=== PATIENT | male | born 1960 | race Two or more races ===

== ENCOUNTER 2020-09-21 10:08 | Inpatient (IN) | payer MEDICAID, OTHER ==
[~2020-09-21] VITALS: Ht 172.7 cm; Wt 94.0 kg
[2020-09-21] MEDS ORDERED: DexAMETHasone SOD PHOS 10MG/1ML VIAL INJ IV ONE (10:45)
[2020-09-21] MEDS ORDERED: ASCORBIC ACID 500 MG TAB PO ONE (10:45)
[2020-09-21] MEDS ORDERED: ZINC SULFATE 220mg CAP or TAB PO ONE (10:45)
[2020-09-21] MEDS ORDERED: cefTRIAXone 1GM/50ML D5W 50 ML IV ONE (10:45)
[2020-09-21 11:19] LABS: Basophils # (auto) 0 10 ^3/uL (0-0.2); Basophils % (auto) 0.2 % (0.0-2.0); Eosinophils # (auto) 0 10 ^3/uL (0-0.8); Hematocrit 36.2 % (41.0-53.0); Hemoglobin 12.6 g/dL (13.5-17.5); Lymphocytes # (auto) 0.3 10 ^3/uL (0.4-5.4); Lymphocytes % (auto) 2.7 % (10.0-50.0); Mean Corpuscular Hemoglobin 28.4 pg (28.0-32.0); Mean Corpuscular Hgb Conc. 34.8 g/dL (32.0-36.0); Mean Corpuscular Volume 81.5 fL (80.0-100.0); Monocytes # (auto) 0.5 10 ^3/uL (0-1.3); Monocytes % (auto) 4.6 % (0.0-12.0); Neutrophils # (auto) 9.3 10 ^3/uL (1.6-8.6); Neutrophils % (auto) 92.5 % (37.0-80.0); Platelet Count (auto) 337 10^3/uL (140-450); Red Blood Cells 4.44 10^6/uL (4.5-5.90); White Blood Cell 10.1 10^3/uL (4.4-10.8)
[2020-09-21 11:32] LABS: Albumin 2.4 g/dL (3.4-5.0); Anion Gap 9 (5-15); Blood Urea Nitrogen 44 mg/dL (7-18); Calcium 8.5 mg/dL (8.5-10.1); Carbon Dioxide 25 mmol/L (21-32); Chloride 100 mmol/L (98-107); Glucose 217 mg/dL (74-106); Sodium 134 mmol/L (136-145)
[2020-09-21 11:41] LABS: Alanine Aminotransferase 60 U/L (16-61); Alkaline Phosphatase 60 U/L (45-117); Aspartate Aminotransferase 43 U/L (15-37); BUN/Creatinine Ratio 36.4; Bilirubin, Total 0.4 mg/dL (0.2-1.0); GFR African American 79 mL/min; GFR Non-African American 65 mL/min; Lactate Dehydrogenase 523 U/L (87-241); Total Protein 6.9 g/dL (6.4-8.2)
[2020-09-21 11:54] LABS: INR 1.1 (0.9-1.15); Partial Thromboplastin Time 30.7 sec (23.0-31.2)
[2020-09-21 11:57] LABS: CRP High Sensitivity > 19.0 mg/dL (< 0.3)
[2020-09-21] MEDS ORDERED: POTASSIUM CHLORIDE 40 MEQ, LIDOCAINE 1% (LOCAL ANESTH.) 4 ML in SODIUM CHL 0.9% 250 ML IV ONE (19:00)
[2020-09-21] MEDS ORDERED: NITROGLYCERIN 0.4 MG SL TAB SL PRN ×2 (19:00→23:45)
[2020-09-21] MEDS ORDERED: MORPHINE SULF INJ 2 MG/ML SYRINGE 1ML IV PRN ×3 (19:00→23:45)
[2020-09-21 19:54] LABS: Urine Bacteria NONE SEEN /hpf (None Seen); Urine Blood Negative /uL (Negative); Urine Specific Gravity 1.017 (1.001-1.035); Urine WBC 1 /hpf (0 - 3)
[2020-09-21] MEDS ORDERED: ENOXAPARIN SOD 100 MG/1 ML SYRINGE SC ONE (23:45)
[2020-09-21] MEDS ORDERED: ALUM & MAG HYDROX-SIMETH LIQ(MAALOX) 30 ML PO PRN (23:45)
[2020-09-21] MEDS ORDERED: DOCUSATE SOD 100 MG CAP PO PRN (23:45)
[2020-09-21] MEDS ORDERED: DEXTROSE (50%) 50ML SYRG IV PRN (23:45)
[2020-09-21] MEDS ORDERED: ONDANSETRON HCL 4 MG/2 ML VIAL IV PRN (23:45)
[2020-09-21] MEDS ORDERED: ACETAMINOPHEN 500 MG TAB PO PRN (23:45)
[2020-09-21] MEDS: SODIUM CHLORIDE 0.9% 1,000 ML IV SCH (23:45)
[2020-09-21] MEDS ORDERED: REMDESIVIR PER PHARMACY 0 ML IV SCH (23:45)
[2020-09-21] MEDS ORDERED: POTASSIUM CHL 20 Meq TABLET PO ONE (23:45)
[2020-09-22 00:15] VITALS: BP 135/60
[2020-09-22 02:19] LABS: Alcohol, Urine < 3.0 mg/dL (0-10); Amphetamine Screen, Urine NEGATIVE (NEGATIVE); Barbiturate Scree,Urine NEGATIVE (NEGATIVE); Benzodiazephine Screen, Urine NEGATIVE (NEGATIVE); Cannabinoid Screen, Urine NEGATIVE (NEGATIVE); Cocaine Screen, Urine NEGATIVE (NEGATIVE); Opiate Scree,Urine NEGATIVE (NEGATIVE); Phencyclidine Screen, Urine NEGATIVE (NEGATIVE)
[2020-09-22 03:48] LABS: Basophils # (auto) 0 10 ^3/uL (0-0.2); Basophils % (auto) 0.2 % (0.0-2.0); Eosinophils # (auto) 0 10 ^3/uL (0-0.8); Hematocrit 37.7 % (41.0-53.0); Hemoglobin 13.3 g/dL (13.5-17.5); Lymphocytes # (auto) 0.3 10 ^3/uL (0.4-5.4); Lymphocytes % (auto) 3.4 % (10.0-50.0); Mean Corpuscular Hemoglobin 28.8 pg (28.0-32.0); Mean Corpuscular Hgb Conc. 35.1 g/dL (32.0-36.0); Monocytes # (auto) 0.6 10 ^3/uL (0-1.3); Monocytes % (auto) 7.5 % (0.0-12.0); Neutrophils # (auto) 7.3 10 ^3/uL (1.6-8.6); Neutrophils % (auto) 88.9 % (37.0-80.0); Nucleated Red Blood Cells % 0.3 %; Platelet Count (auto) 383 10^3/uL (140-450); White Blood Cell 8.2 10^3/uL (4.4-10.8)
[2020-09-22 04:13] LABS: Albumin 2.5 g/dL (3.4-5.0); Anion Gap 4 (5-15); Blood Urea Nitrogen 35 mg/dL (7-18); Calcium 8.6 mg/dL (8.5-10.1); Carbon Dioxide 30 mmol/L (21-32); Chloride 102 mmol/L (98-107); Cholesterol 133 mg/dL (< 200); Glucose 286 mg/dL (74-106); Magnesium 2.7 mg/dL (1.6-2.6); Potassium 3.8 mmol/L (3.5-5.1); Sodium 136 mmol/L (136-145)
[2020-09-22 04:17] LABS: HDL Cholesterol 26 mg/dL (40-59); LDL Cholesterol 80 mg/dL (< 100); Triglycerides 152 mg/dL (< 150)
[2020-09-22 04:21] LABS: Alanine Aminotransferase 58 U/L (16-61); Alkaline Phosphatase 61 U/L (45-117); Aspartate Aminotransferase 42 U/L (15-37); Bilirubin, Total 0.3 mg/dL (0.2-1.0); GFR African American 76 mL/min; GFR Non-African American 63 mL/min; Lactate Dehydrogenase 584 U/L (87-241); Total Protein 7.2 g/dL (6.4-8.2)
[2020-09-22 04:24] LABS: CRP High Sensitivity > 19 mg/dL (< 0.3)
[2020-09-22 05:03] LABS: INR 1.15 (0.9-1.15); Partial Thromboplastin Time 32.3 sec (23.0-31.2)
[2020-09-22] MEDS ORDERED: FUROSEMIDE 20 MG/2 ML VIAL IV SCH (06:00)
[2020-09-22] MEDS: ACCU-CHEK COMFORT CURVE STRIP VI SCH ×4 (06:40→22:00)
[2020-09-22] MEDS: InsuLIN REG 1unit/0.01ml Soln (100units/ml) SC SCH ×4 (06:44→22:47)
[2020-09-22 07:51] LABS: Basophils # (auto) 0 10 ^3/uL (0-0.2); Basophils % (auto) 0.1 % (0.0-2.0); Eosinophils # (auto) 0 10 ^3/uL (0-0.8); Hematocrit 35.7 % (41.0-53.0); Hemoglobin 12.4 g/dL (13.5-17.5); Lymphocytes # (auto) 0.4 10 ^3/uL (0.4-5.4); Lymphocytes % (auto) 4.6 % (10.0-50.0); Mean Corpuscular Hemoglobin 28.4 pg (28.0-32.0); Mean Corpuscular Hgb Conc. 34.8 g/dL (32.0-36.0); Mean Corpuscular Volume 81.6 fL (80.0-100.0); Monocytes # (auto) 0.5 10 ^3/uL (0-1.3); Monocytes % (auto) 6.4 % (0.0-12.0); Neutrophils % (auto) 88.9 % (37.0-80.0); Platelet Count (auto) 351 10^3/uL (140-450); Red Blood Cells 4.38 10^6/uL (4.5-5.90); Red Cell Distribution Width 13.1 % (11.8-14.3); White Blood Cell 7.8 10^3/uL (4.4-10.8)
[2020-09-22 08:00] VITALS: BP 114/67
[2020-09-22 08:06] LABS: Potassium 3.6 mmol/L (3.5-5.1)
[2020-09-22 08:18] LABS: Albumin 2.4 g/dL (3.4-5.0); BUN/Creatinine Ratio 28.4; Bilirubin, Total 0.4 mg/dL (0.2-1.0); Calcium 8.5 mg/dL (8.5-10.1); Total Protein 7.2 g/dL (6.4-8.2)
[2020-09-22] MEDS: DexAMETHasone SOD PHOS 10MG/1ML VIAL INJ IV SCH (09:49)
[2020-09-22] MEDS: FAMOTIDINE (10MG/ML) 2ML VL IV SCH ×2 (09:49→22:45)
[2020-09-22] MEDS: ZINC SULFATE 220mg CAP or TAB PO SCH (09:50)
[2020-09-22] MEDS: POTASSIUM CHL 10 Meq TABLET PO SCH (09:50)
[2020-09-22] MEDS: ASPirin 81 mg TAB PO SCH (09:50)
[2020-09-22] MEDS: DOXYCYCLINE 100MG/250ML 250 ML IV SCH ×2 (09:50→22:45)
[2020-09-22] MEDS: ASCORBIC ACID 1,000 MG TAB PO SCH (09:51)
[2020-09-22] MEDS: ENOXAPARIN SOD 100 MG/1 ML SYRINGE SC SCH ×2 (09:51→22:46)
[2020-09-22] MEDS: CHOLECALCIFEROL (VITD3) 2,000 UNIT CAP/TAB PO SCH (09:51)
[2020-09-22] MEDS: BUDESONIDE (INHALATION) 180 MCG IH IN SCH ×2 (10:00→21:31)
[2020-09-22] MEDS ORDERED: REMDESIVIR 200 MG in NS 210ml LOADING DOSE ADULT IV ONE (15:00)
[2020-09-22 16:00] VITALS: BP_SYST 113; BP_SYST 122; BP_DIAS 64; BP_DIAS 70
[2020-09-22] MEDS: SODIUM CHLORIDE 0.9% 1,000 ML IV SCH (16:25)
[2020-09-22] MEDS: FUROSEMIDE 40 MG/4 ML VIAL IV SCH (18:44)
[2020-09-22] MEDS: ATORVASTATIN 20 MG TAB PO SCH (22:45)
[2020-09-23] VITALS: BP 102/56
[2020-09-23] MEDS: FUROSEMIDE 40 MG/4 ML VIAL IV SCH ×2 (06:29→17:23)
[2020-09-23] MEDS: InsuLIN REG 1unit/0.01ml Soln (100units/ml) SC SCH ×4 (06:34→23:08)
[2020-09-23] MEDS: ACCU-CHEK COMFORT CURVE STRIP VI SCH ×4 (06:41→22:00)
[2020-09-23] MEDS: BUDESONIDE (INHALATION) 180 MCG IH IN SCH ×2 (06:55→20:11)
[2020-09-23] MEDS: ALBUTEROL SULF HFA 90MCG INH 200DOSE IN PRN ×2 (06:55→20:12)
[2020-09-23 08:00] VITALS: BP 131/74
[2020-09-23] MEDS: DexAMETHasone SOD PHOS 10MG/1ML VIAL INJ IV SCH (09:20)
[2020-09-23] MEDS: POTASSIUM CHL 10 Meq TABLET PO SCH (09:20)
[2020-09-23] MEDS: CHOLECALCIFEROL (VITD3) 2,000 UNIT CAP/TAB PO SCH (09:20)
[2020-09-23] MEDS: ASCORBIC ACID 1,000 MG TAB PO SCH (09:20)
[2020-09-23] MEDS: ASPirin 81 mg TAB PO SCH (09:21)
[2020-09-23] MEDS: DOXYCYCLINE 100MG/250ML 250 ML IV SCH ×2 (09:21→23:09)
[2020-09-23] MEDS: ZINC SULFATE 220mg CAP or TAB PO SCH (09:21)
[2020-09-23] MEDS: SODIUM CHLORIDE 0.9% 1,000 ML IV SCH (09:22)
[2020-09-23] MEDS: FAMOTIDINE (10MG/ML) 2ML VL IV SCH ×2 (09:22→23:09)
[2020-09-23] MEDS: ENOXAPARIN SOD 100 MG/1 ML SYRINGE SC SCH ×2 (09:22→23:09)
[2020-09-23 13:07] LABS: Basophils # (auto) 0 10 ^3/uL (0-0.2); Basophils % (auto) 0.2 % (0.0-2.0); Eosinophils # (auto) 0 10 ^3/uL (0-0.8); Hematocrit 37.5 % (41.0-53.0); Hemoglobin 13.1 g/dL (13.5-17.5); Lymphocytes # (auto) 0.4 10 ^3/uL (0.4-5.4); Lymphocytes % (auto) 3.2 % (10.0-50.0); Mean Corpuscular Hemoglobin 28.5 pg (28.0-32.0); Mean Corpuscular Hgb Conc. 34.8 g/dL (32.0-36.0); Mean Corpuscular Volume 81.8 fL (80.0-100.0); Monocytes # (auto) 0.3 10 ^3/uL (0-1.3); Monocytes % (auto) 2.6 % (0.0-12.0); Neutrophils # (auto) 11.2 10 ^3/uL (1.6-8.6); Platelet Count (auto) 377 10^3/uL (140-450); Red Blood Cells 4.58 10^6/uL (4.5-5.90); Red Cell Distribution Width 13.1 % (11.8-14.3); White Blood Cell 11.9 10^3/uL (4.4-10.8)
[2020-09-23 16:01] LABS: Potassium 3.7 mmol/L (3.5-5.1)
[2020-09-23 16:11] LABS: Albumin 2.5 g/dL (3.4-5.0); BUN/Creatinine Ratio 27.1; Bilirubin, Total 0.6 mg/dL (0.2-1.0); Calcium 8.2 mg/dL (8.5-10.1); Magnesium 2.2 mg/dL (1.6-2.6); Phosphorus 3.1 mg/dL (2.5-4.90); Total Protein 7.4 g/dL (6.4-8.2)
[2020-09-23 16:12] VITALS: BP 97/55
[2020-09-23] MEDS ORDERED: SODIUM CHLORIDE 0.9% 500 ML IV ONE (16:15)
[2020-09-23] MEDS: REMDESIVIR 100mg 100 MG in SODIUM CHL 0.9% 230 ML IV SCH (16:39)
[2020-09-23] MEDS: ATORVASTATIN 20 MG TAB PO SCH (23:09)
[2020-09-24] VITALS: BP 107/53
[2020-09-24] MEDS: SODIUM CHLORIDE 0.9% 1,000 ML IV SCH (01:45)
[2020-09-24] MEDS: FUROSEMIDE 40 MG/4 ML VIAL IV SCH ×3 (06:16→18:49)
[2020-09-24] MEDS: InsuLIN REG 1unit/0.01ml Soln (100units/ml) SC SCH ×4 (06:16→22:07)
[2020-09-24] MEDS: ACCU-CHEK COMFORT CURVE STRIP VI SCH ×4 (06:21→22:07)
[2020-09-24 08:10] VITALS: BP 111/52
[2020-09-24 08:21] LABS: Basophils # (auto) 0 10 ^3/uL (0-0.2); Basophils % (auto) 0.2 % (0.0-2.0); Eosinophils # (auto) 0 10 ^3/uL (0-0.8); Hematocrit 39.6 % (41.0-53.0); Hemoglobin 13.2 g/dL (13.5-17.5); Lymphocytes # (auto) 0.5 10 ^3/uL (0.4-5.4); Lymphocytes % (auto) 4.9 % (10.0-50.0); Mean Corpuscular Hemoglobin 27.6 pg (28.0-32.0); Mean Corpuscular Hgb Conc. 33.3 g/dL (32.0-36.0); Mean Corpuscular Volume 82.8 fL (80.0-100.0); Monocytes # (auto) 0.2 10 ^3/uL (0-1.3); Monocytes % (auto) 1.9 % (0.0-12.0); Neutrophils # (auto) 10.3 10 ^3/uL (1.6-8.6); Nucleated Red Blood Cells % 0.1 %; Platelet Count (auto) 406 10^3/uL (140-450); Red Blood Cells 4.78 10^6/uL (4.5-5.90); White Blood Cell 11.1 10^3/uL (4.4-10.8)
[2020-09-24 08:38] LABS: INR 1.27 (0.9-1.15); Partial Thromboplastin Time 33.6 sec (23.0-31.2)
[2020-09-24 08:50] LABS: Potassium 3.5 mmol/L (3.5-5.1)
[2020-09-24 09:05] LABS: Albumin 2.5 g/dL (3.4-5.0); BUN/Creatinine Ratio 27.4; Bilirubin, Total 0.6 mg/dL (0.2-1.0); Calcium 8.5 mg/dL (8.5-10.1); Magnesium 2.3 mg/dL (1.6-2.6); Phosphorus 3.1 mg/dL (2.5-4.90); Total Protein 7.4 g/dL (6.4-8.2)
[2020-09-24] MEDS: BUDESONIDE (INHALATION) 180 MCG IH IN SCH ×3 (09:48→23:04)
[2020-09-24] MEDS: CHOLECALCIFEROL (VITD3) 2,000 UNIT CAP/TAB PO SCH (10:00)
[2020-09-24] MEDS: ENOXAPARIN SOD 100 MG/1 ML SYRINGE SC SCH ×2 (10:00→21:21)
[2020-09-24] MEDS: DexAMETHasone SOD PHOS 10MG/1ML VIAL INJ IV SCH (10:34)
[2020-09-24] MEDS: ASCORBIC ACID 1,000 MG TAB PO SCH (10:35)
[2020-09-24] MEDS: DOXYCYCLINE 100MG/250ML 250 ML IV SCH ×2 (10:35→22:00)
[2020-09-24] MEDS: POTASSIUM CHL 10 Meq TABLET PO SCH (10:35)
[2020-09-24] MEDS: FAMOTIDINE (10MG/ML) 2ML VL IV SCH ×2 (10:36→21:21)
[2020-09-24] MEDS: ASPirin 81 mg TAB PO SCH (10:36)
[2020-09-24] MEDS: ZINC SULFATE 220mg CAP or TAB PO SCH (10:36)
[2020-09-24] MEDS: ALBUTEROL SULF HFA 90MCG INH 200DOSE IN PRN ×2 (13:13→23:04)
[2020-09-24] MEDS: REMDESIVIR 100mg 100 MG in SODIUM CHL 0.9% 230 ML IV SCH (15:00)
[2020-09-24] MEDS: ERGOCALCIFEROL 50,000 UNIT(1.25MG) CAP PO SCH (15:30)
[2020-09-24 16:30] VITALS: BP 115/61
[2020-09-24] MEDS ORDERED: ACETAMINOPHEN 650 mg PER 20.3 mL UD PO ONE ×2 (16:30→20:46)
[2020-09-24] MEDS ORDERED: diphenhdrAMINE HCL 50 MG/1 ML VL IV ONE ×2 (16:30→20:46)
[2020-09-24] MEDS ORDERED: methylPREDNISolone SOD SUCC 40 MG/ML VL IV ONE ×2 (16:30→20:46)
[2020-09-24] MEDS ORDERED: IOHEXOL 350 MG/ML 100ML IJ ONE (17:01)
[2020-09-24] MEDS: TOCILIZUMAB 400 MG in SODIUM CHL 0.9% 80 ML IV ONE (18:29)
[2020-09-24] MEDS ORDERED: TOCILIZUMAB 400 MG in SODIUM CHL 0.9% 80 ML IV ONE (21:15)
[2020-09-25] VITALS: BP 108/72
[2020-09-25] MEDS: FUROSEMIDE 40 MG/4 ML VIAL IV SCH ×2 (05:40→17:30)
[2020-09-25 06:16] LABS: Basophils # (auto) 0 10 ^3/uL (0-0.2); Basophils % (auto) 0.1 % (0.0-2.0); Eosinophils # (auto) 0 10 ^3/uL (0-0.8); Hematocrit 39.4 % (41.0-53.0); Hemoglobin 13.1 g/dL (13.5-17.5); Lymphocytes # (auto) 0.4 10 ^3/uL (0.4-5.4); Lymphocytes % (auto) 5.6 % (10.0-50.0); Mean Corpuscular Hemoglobin 27.7 pg (28.0-32.0); Mean Corpuscular Hgb Conc. 33.4 g/dL (32.0-36.0); Mean Corpuscular Volume 83.2 fL (80.0-100.0); Monocytes # (auto) 0.1 10 ^3/uL (0-1.3); Monocytes % (auto) 2.1 % (0.0-12.0); Neutrophils # (auto) 5.9 10 ^3/uL (1.6-8.6); Neutrophils % (auto) 92.2 % (37.0-80.0); Platelet Count (auto) 391 10^3/uL (140-450); Red Blood Cells 4.73 10^6/uL (4.5-5.90); Red Cell Distribution Width 13.3 % (11.8-14.3); White Blood Cell 6.4 10^3/uL (4.4-10.8)
[2020-09-25] MEDS: InsuLIN REG 1unit/0.01ml Soln (100units/ml) SC SCH ×4 (06:28→21:49)
[2020-09-25 06:29] LABS: Magnesium 2.5 mg/dL (1.6-2.6); Potassium 3.9 mmol/L (3.5-5.1)
[2020-09-25] MEDS: ACCU-CHEK COMFORT CURVE STRIP VI SCH ×4 (06:29→20:56)
[2020-09-25 06:42] LABS: Albumin 2.2 g/dL (3.4-5.0); BUN/Creatinine Ratio 29.6; Bilirubin, Total 0.5 mg/dL (0.2-1.0); CRP High Sensitivity 14.9 mg/dL (< 0.3); Calcium 8.1 mg/dL (8.5-10.1); Total Protein 6.8 g/dL (6.4-8.2)
[2020-09-25 06:45] LABS: INR 1.33 (0.9-1.15)
[2020-09-25] MEDS: TOCILIZUMAB 400 MG in SODIUM CHL 0.9% 80 ML IV ONE (07:46)
[2020-09-25 08:00] VITALS: BP 117/59
[2020-09-25] MEDS: ALBUTEROL SULF HFA 90MCG INH 200DOSE IN PRN (08:35)
[2020-09-25] MEDS: BUDESONIDE (INHALATION) 180 MCG IH IN SCH (08:35)
[2020-09-25] MEDS: DOXYCYCLINE 100MG/250ML 250 ML IV SCH ×2 (09:47→20:55)
[2020-09-25] MEDS: ZINC SULFATE 220mg CAP or TAB PO SCH (09:48)
[2020-09-25] MEDS: DexAMETHasone SOD PHOS 10MG/1ML VIAL INJ IV SCH ×2 (09:48→20:54)
[2020-09-25] MEDS: ENOXAPARIN SOD 100 MG/1 ML SYRINGE SC SCH ×2 (09:48→20:54)
[2020-09-25] MEDS: FAMOTIDINE (10MG/ML) 2ML VL IV SCH ×2 (09:48→20:54)
[2020-09-25] MEDS: CHOLECALCIFEROL (VITD3) 2,000 UNIT CAP/TAB PO SCH (09:48)
[2020-09-25] MEDS: POTASSIUM CHL 10 Meq TABLET PO SCH ×2 (09:48→20:55)
[2020-09-25] MEDS: ASCORBIC ACID 1,000 MG TAB PO SCH (09:48)
[2020-09-25] MEDS: ASPirin 81 mg TAB PO SCH (09:50)
[2020-09-25] MEDS ORDERED: diphenhdrAMINE HCL 50 MG/1 ML VL IV ONE ×2 (10:00→12:30)
[2020-09-25] MEDS ORDERED: ACETAMINOPHEN 650 mg PER 20.3 mL UD PO ONE ×2 (10:00→12:30)
[2020-09-25] MEDS ORDERED: TOCILIZUMAB 400 MG in SODIUM CHL 0.9% 80 ML IV ONE ×2 (10:30→13:00)
[2020-09-25] MEDS: REMDESIVIR 100mg 100 MG in SODIUM CHL 0.9% 230 ML IV SCH (15:10)
[2020-09-25 16:00] VITALS: BP 104/64
[2020-09-25] MEDS: HYDROcodone-ACET 5/325MG TAB PO PRN (20:55)
[2020-09-25] MEDS ORDERED: POTASSIUM CHL 10 Meq TABLET PO SCH (22:00)
[2020-09-25] MEDS ORDERED: DexAMETHasone SOD PHOS 10MG/1ML VIAL INJ IV SCH (22:00)
[2020-09-26] VITALS: BP 77/42
[2020-09-26 00:30] VITALS: BP 102/68
[2020-09-26] MEDS: FUROSEMIDE 40 MG/4 ML VIAL IV SCH ×2 (05:22→17:19)
[2020-09-26] MEDS: InsuLIN REG 1unit/0.01ml Soln (100units/ml) SC SCH ×4 (05:54→22:44)
[2020-09-26] MEDS: ACCU-CHEK COMFORT CURVE STRIP VI SCH ×4 (05:55→22:16)
[2020-09-26] MEDS: ALBUTEROL SULF HFA 90MCG INH 200DOSE IN PRN ×2 (06:58→20:23)
[2020-09-26] MEDS: BUDESONIDE (INHALATION) 180 MCG IH IN SCH ×2 (06:58→20:23)
[2020-09-26 08:00] VITALS: BP 113/61
[2020-09-26] MEDS: ENOXAPARIN SOD 100 MG/1 ML SYRINGE SC SCH ×2 (09:40→22:15)
[2020-09-26] MEDS: DOXYCYCLINE 100MG/250ML 250 ML IV SCH ×2 (09:40→22:15)
[2020-09-26] MEDS: ZINC SULFATE 220mg CAP or TAB PO SCH (09:40)
[2020-09-26] MEDS: FAMOTIDINE (10MG/ML) 2ML VL IV SCH ×2 (09:40→22:43)
[2020-09-26] MEDS: DexAMETHasone SOD PHOS 10MG/1ML VIAL INJ IV SCH ×2 (09:40→22:16)
[2020-09-26] MEDS: POTASSIUM CHL 10 Meq TABLET PO SCH ×2 (09:41→22:15)
[2020-09-26] MEDS: CHOLECALCIFEROL (VITD3) 2,000 UNIT CAP/TAB PO SCH (09:41)
[2020-09-26] MEDS: ASCORBIC ACID 1,000 MG TAB PO SCH (09:41)
[2020-09-26] MEDS ORDERED: IVERMECTIN 3 MG TAB PO SCH (15:00)
[2020-09-26] MEDS: REMDESIVIR 100mg 100 MG in SODIUM CHL 0.9% 230 ML IV SCH (15:32)
[2020-09-26 16:03] VITALS: BP 106/62
[2020-09-26 16:04] VITALS: BP 106/62
[2020-09-26] MEDS: IVERMECTIN 3 MG TAB PO SCH (17:18)
[2020-09-27] VITALS (7 sets, daily range): BP systolic 108–124; BP diastolic 54–76
[2020-09-27] MEDS: BUDESONIDE (INHALATION) 180 MCG IH IN SCH ×2 (06:32→22:08)
[2020-09-27] MEDS: ALBUTEROL SULF HFA 90MCG INH 200DOSE IN PRN ×2 (06:32→22:09)
[2020-09-27] MEDS: IVERMECTIN 3 MG TAB PO SCH (06:34)
[2020-09-27] MEDS: FUROSEMIDE 40 MG/4 ML VIAL IV SCH ×2 (06:34→18:08)
[2020-09-27] MEDS: InsuLIN REG 1unit/0.01ml Soln (100units/ml) SC SCH ×4 (06:34→20:43)
[2020-09-27] MEDS: ACCU-CHEK COMFORT CURVE STRIP VI SCH ×4 (06:35→20:42)
[2020-09-27 08:10] LABS: INR 1.22 (0.9-1.15)
[2020-09-27 08:13] LABS: Potassium 3.8 mmol/L (3.5-5.1)
[2020-09-27 08:23] LABS: Albumin 2.5 g/dL (3.4-5.0); Bilirubin, Direct 0.3 mg/dL (0-0.2); Bilirubin, Total 0.6 mg/dL (0.2-1.0); CRP High Sensitivity 4.4 mg/dL (< 0.3); Total Protein 7.1 g/dL (6.4-8.2)
[2020-09-27] MEDS: DexAMETHasone SOD PHOS 10MG/1ML VIAL INJ IV SCH ×2 (09:15→20:43)
[2020-09-27] MEDS: POTASSIUM CHL 10 Meq TABLET PO SCH ×2 (09:16→20:43)
[2020-09-27] MEDS: FAMOTIDINE (10MG/ML) 2ML VL IV SCH ×2 (09:16→20:43)
[2020-09-27] MEDS: CHOLECALCIFEROL (VITD3) 2,000 UNIT CAP/TAB PO SCH (09:16)
[2020-09-27] MEDS: ZINC SULFATE 220mg CAP or TAB PO SCH (09:16)
[2020-09-27] MEDS: ASCORBIC ACID 1,000 MG TAB PO SCH (09:16)
[2020-09-27] MEDS: ENOXAPARIN SOD 100 MG/1 ML SYRINGE SC SCH ×2 (09:16→20:43)
[2020-09-28 00:18] VITALS: BP 110/66
[2020-09-28] MEDS: ACCU-CHEK COMFORT CURVE STRIP VI SCH ×4 (05:49→20:44)
[2020-09-28] MEDS: FUROSEMIDE 40 MG/4 ML VIAL IV SCH ×2 (05:49→17:57)
[2020-09-28] MEDS: InsuLIN REG 1unit/0.01ml Soln (100units/ml) SC SCH ×4 (05:50→20:46)
[2020-09-28] MEDS: IVERMECTIN 3 MG TAB PO SCH (06:57)
[2020-09-28 08:00] VITALS: BP 105/69
[2020-09-28] MEDS: ASCORBIC ACID 1,000 MG TAB PO SCH (09:00)
[2020-09-28] MEDS: FAMOTIDINE (10MG/ML) 2ML VL IV SCH ×2 (09:00→20:43)
[2020-09-28] MEDS: ZINC SULFATE 220mg CAP or TAB PO SCH (09:00)
[2020-09-28] MEDS: CHOLECALCIFEROL (VITD3) 2,000 UNIT CAP/TAB PO SCH (09:00)
[2020-09-28] MEDS: DexAMETHasone SOD PHOS 10MG/1ML VIAL INJ IV SCH ×2 (09:00→20:43)
[2020-09-28] MEDS: POTASSIUM CHL 10 Meq TABLET PO SCH ×2 (09:00→20:43)
[2020-09-28] MEDS: BUDESONIDE (INHALATION) 180 MCG IH IN SCH ×2 (09:01→19:39)
[2020-09-28] MEDS: ENOXAPARIN SOD 100 MG/1 ML SYRINGE SC SCH ×2 (09:01→20:44)
[2020-09-28] MEDS ORDERED: cefTRIAXone 1GM/50ML D5W 50 ML IV ONE (14:00)
[2020-09-28 16:00] VITALS: BP 122/57
[2020-09-28] MEDS ORDERED: AZITHROMYCIN 500MG/ 250ML 250 ML IV ONE (16:00)
[2020-09-28] MEDS: ALBUTEROL SULF HFA 90MCG INH 200DOSE IN PRN (20:38)
[2020-09-28] MEDS ORDERED: INSULIN LANTUS (GLARGINE) 1 /0.01ml (100units/ml) SC SCH (22:00)
[2020-09-29] VITALS: BP 117/71
[2020-09-29] MEDS: FUROSEMIDE 40 MG/4 ML VIAL IV SCH (06:00)
[2020-09-29] MEDS: ACCU-CHEK COMFORT CURVE STRIP VI SCH ×4 (06:04→22:00)
[2020-09-29] MEDS: InsuLIN REG 1unit/0.01ml Soln (100units/ml) SC SCH ×4 (06:05→22:00)
[2020-09-29] MEDS: ALBUTEROL SULF HFA 90MCG INH 200DOSE IN PRN ×2 (06:48→19:02)
[2020-09-29] MEDS: BUDESONIDE (INHALATION) 180 MCG IH IN SCH ×2 (06:48→19:02)
[2020-09-29 08:00] VITALS: BP 159/106
[2020-09-29 08:37] LABS: Basophils # (auto) 0 10 ^3/uL (0-0.2); Basophils % (auto) 0.1 % (0.0-2.0); Eosinophils # (auto) 0 10 ^3/uL (0-0.8); Hematocrit 43.4 % (41.0-53.0); Hemoglobin 14.9 g/dL (13.5-17.5); Lymphocytes # (auto) 0.4 10 ^3/uL (0.4-5.4); Lymphocytes % (auto) 3.8 % (10.0-50.0); Mean Corpuscular Hemoglobin 28.4 pg (28.0-32.0); Mean Corpuscular Hgb Conc. 34.3 g/dL (32.0-36.0); Monocytes # (auto) 0.1 10 ^3/uL (0-1.3); Monocytes % (auto) 1.1 % (0.0-12.0); Neutrophils # (auto) 9.6 10 ^3/uL (1.6-8.6); Platelet Count (auto) 369 10^3/uL (140-450); Red Blood Cells 5.23 10^6/uL (4.5-5.90); White Blood Cell 10.1 10^3/uL (4.4-10.8)
[2020-09-29] MEDS: FAMOTIDINE (10MG/ML) 2ML VL IV SCH ×2 (09:06→22:37)
[2020-09-29] MEDS: DexAMETHasone SOD PHOS 10MG/1ML VIAL INJ IV SCH ×2 (09:06→22:37)
[2020-09-29] MEDS: cefTRIAXone 1GM/50ML D5W 50 ML IV SCH (09:06)
[2020-09-29] MEDS: ZINC SULFATE 220mg CAP or TAB PO SCH (09:06)
[2020-09-29] MEDS: CHOLECALCIFEROL (VITD3) 2,000 UNIT CAP/TAB PO SCH (09:07)
[2020-09-29] MEDS: ENOXAPARIN SOD 100 MG/1 ML SYRINGE SC SCH ×2 (09:07→22:38)
[2020-09-29] MEDS: ASCORBIC ACID 1,000 MG TAB PO SCH (09:07)
[2020-09-29] MEDS: POTASSIUM CHL 10 Meq TABLET PO SCH ×2 (09:07→22:37)
[2020-09-29 09:26] LABS: Albumin 2.5 g/dL (3.4-5.0); Potassium 4.5 mmol/L (3.5-5.1)
[2020-09-29 09:30] LABS: BUN/Creatinine Ratio 26.9; Bilirubin, Total 0.5 mg/dL (0.2-1.0); Total Protein 6.7 g/dL (6.4-8.2)
[2020-09-29] MEDS: AZITHROMYCIN 500MG/ 250ML 250 ML IV SCH (10:41)
[2020-09-29] MEDS ORDERED: FUROSEMIDE 40 MG/4 ML VIAL IV ONE (11:45)
[2020-09-29 16:00] VITALS: BP 100/59
[2020-09-29] MEDS: INSULIN LANTUS (GLARGINE) 1 /0.01ml (100units/ml) SC SCH (22:00)
[2020-09-30] VITALS (7 sets, daily range): BP systolic 98–118; BP diastolic 68–90
[2020-09-30] MEDS: ACCU-CHEK COMFORT CURVE STRIP VI SCH ×4 (06:52→22:00)
[2020-09-30] MEDS: InsuLIN REG 1unit/0.01ml Soln (100units/ml) SC SCH ×4 (06:53→22:00)
[2020-09-30] MEDS: ALBUTEROL SULF HFA 90MCG INH 200DOSE IN PRN ×2 (07:36→21:11)
[2020-09-30] MEDS: BUDESONIDE (INHALATION) 180 MCG IH IN SCH ×2 (07:37→21:11)
[2020-09-30] MEDS: cefTRIAXone 1GM/50ML D5W 50 ML IV SCH (09:20)
[2020-09-30] MEDS ORDERED: diphenhdrAMINE HCL 50 MG/1 ML VL IV PRN (09:45)
[2020-09-30] MEDS: DexAMETHasone SOD PHOS 10MG/1ML VIAL INJ IV SCH ×2 (09:49→22:00)
[2020-09-30] MEDS: POTASSIUM CHL 10 Meq TABLET PO SCH ×2 (09:50→22:00)
[2020-09-30] MEDS: FUROSEMIDE 40 MG/4 ML VIAL IV SCH (09:50)
[2020-09-30] MEDS: ASCORBIC ACID 1,000 MG TAB PO SCH (09:50)
[2020-09-30] MEDS: ZINC SULFATE 220mg CAP or TAB PO SCH (09:50)
[2020-09-30] MEDS: CHOLECALCIFEROL (VITD3) 2,000 UNIT CAP/TAB PO SCH (09:50)
[2020-09-30] MEDS: FAMOTIDINE (10MG/ML) 2ML VL IV SCH ×2 (09:50→22:00)
[2020-09-30] MEDS: ENOXAPARIN SOD 100 MG/1 ML SYRINGE SC SCH ×2 (09:51→22:00)
[2020-09-30] MEDS: INSULIN LANTUS (GLARGINE) 1 /0.01ml (100units/ml) SC SCH ×2 (09:52→22:00)
[2020-09-30] MEDS: AZITHROMYCIN 500MG/ 250ML 250 ML IV SCH (10:50)
[2020-10-01 00:21] VITALS: BP 130/69
[2020-10-01] MEDS ORDERED: PHYTONADIONE (VIT K)10 MG/ML 1ML VIAL SUBCUT ONE ×2 (01:00→13:45)
[2020-10-01] MEDS: BUDESONIDE (INHALATION) 180 MCG IH IN SCH ×2 (06:27→20:13)
[2020-10-01] MEDS: ALBUTEROL SULF HFA 90MCG INH 200DOSE IN PRN ×2 (06:27→20:14)
[2020-10-01] MEDS: InsuLIN REG 1unit/0.01ml Soln (100units/ml) SC SCH ×4 (06:39→23:57)
[2020-10-01] MEDS: ACCU-CHEK COMFORT CURVE STRIP VI SCH ×4 (06:39→22:00)
[2020-10-01 08:00] VITALS: BP 102/69
[2020-10-01] MEDS: ENOXAPARIN SOD 100 MG/1 ML SYRINGE SC SCH ×2 (10:00→22:00)
[2020-10-01] MEDS: ASCORBIC ACID 1,000 MG TAB PO SCH (10:00)
[2020-10-01] MEDS: CHOLECALCIFEROL (VITD3) 2,000 UNIT CAP/TAB PO SCH (10:00)
[2020-10-01] MEDS: cefTRIAXone 1GM/50ML D5W 50 ML IV SCH (10:47)
[2020-10-01] MEDS: ZINC SULFATE 220mg CAP or TAB PO SCH (10:48)
[2020-10-01] MEDS: DexAMETHasone SOD PHOS 10MG/1ML VIAL INJ IV SCH ×2 (10:48→22:00)
[2020-10-01] MEDS: FUROSEMIDE 40 MG/4 ML VIAL IV SCH (10:48)
[2020-10-01] MEDS: POTASSIUM CHL 10 Meq TABLET PO SCH ×2 (10:48→22:34)
[2020-10-01] MEDS: FAMOTIDINE (10MG/ML) 2ML VL IV SCH ×2 (10:48→22:00)
[2020-10-01] MEDS: AZITHROMYCIN 500MG/ 250ML 250 ML IV SCH (12:49)
[2020-10-01] MEDS: INSULIN LANTUS (GLARGINE) 1 /0.01ml (100units/ml) SC SCH ×2 (15:10→22:00)
[2020-10-01] MEDS: ERGOCALCIFEROL 50,000 UNIT(1.25MG) CAP PO SCH (15:37)
[2020-10-01 16:00] VITALS: BP 96/67
[2020-10-01] MEDS: SALINE 0.65 % NASAL SPRAY 45ML BOTTLE EACHNOSTRI SCH ×2 (17:32→22:00)
[2020-10-01 19:40] VITALS: BP 96/67
[2020-10-02] VITALS: BP 100/69
[2020-10-02] MEDS: SALINE 0.65 % NASAL SPRAY 45ML BOTTLE EACHNOSTRI SCH ×4 (05:46→22:22)
[2020-10-02] MEDS: InsuLIN REG 1unit/0.01ml Soln (100units/ml) SC SCH ×4 (06:43→22:43)
[2020-10-02] MEDS: ACCU-CHEK COMFORT CURVE STRIP VI SCH ×4 (06:44→22:23)
[2020-10-02] MEDS: BUDESONIDE (INHALATION) 180 MCG IH IN SCH ×2 (07:55→19:40)
[2020-10-02] MEDS: ALBUTEROL SULF HFA 90MCG INH 200DOSE IN PRN ×2 (07:55→19:40)
[2020-10-02 08:00] VITALS: BP 95/69
[2020-10-02 08:10] LABS: Basophils # (auto) 0 10 ^3/uL (0-0.2); Basophils % (auto) 0.2 % (0.0-2.0); Eosinophils # (auto) 0 10 ^3/uL (0-0.8); Eosinophils % (auto) 0.1 % (0.0-7.0); Hematocrit 44.3 % (41.0-53.0); Lymphocytes # (auto) 0.3 10 ^3/uL (0.4-5.4); Lymphocytes % (auto) 3.9 % (10.0-50.0); Mean Corpuscular Hemoglobin 28.3 pg (28.0-32.0); Mean Corpuscular Hgb Conc. 33.9 g/dL (32.0-36.0); Mean Corpuscular Volume 83.4 fL (80.0-100.0); Monocytes # (auto) 0.2 10 ^3/uL (0-1.3); Monocytes % (auto) 3.2 % (0.0-12.0); Neutrophils # (auto) 6.8 10 ^3/uL (1.6-8.6); Neutrophils % (auto) 92.6 % (37.0-80.0); Nucleated Red Blood Cells % 0.1 %; Platelet Count (auto) 311 10^3/uL (140-450); Red Blood Cells 5.32 10^6/uL (4.5-5.90); Red Cell Distribution Width 13.2 % (11.8-14.3); White Blood Cell 7.3 10^3/uL (4.4-10.8)
[2020-10-02 08:18] LABS: Magnesium 2.7 mg/dL (1.6-2.6); Potassium 4.6 mmol/L (3.5-5.1)
[2020-10-02 08:19] LABS: Lactic Acid w/Reflex 2.1 mmol/L (0.4-2.0)
[2020-10-02 08:25] LABS: Albumin 2.9 g/dL (3.4-5.0); BUN/Creatinine Ratio 36.1; Bilirubin, Total 0.9 mg/dL (0.2-1.0); CRP High Sensitivity 0.23 mg/dL (< 0.3); Calcium 8.2 mg/dL (8.5-10.1); Total Protein 6.8 g/dL (6.4-8.2)
[2020-10-02 08:31] LABS: INR 1.06 (0.9-1.15)
[2020-10-02] MEDS: FUROSEMIDE 40 MG/4 ML VIAL IV SCH (10:00)
[2020-10-02] MEDS: ENOXAPARIN SOD 100 MG/1 ML SYRINGE SC SCH ×2 (10:00→22:23)
[2020-10-02] MEDS: ZINC SULFATE 220mg CAP or TAB PO SCH (10:18)
[2020-10-02] MEDS: DexAMETHasone SOD PHOS 10MG/1ML VIAL INJ IV SCH ×2 (10:18→22:22)
[2020-10-02] MEDS: POTASSIUM CHL 10 Meq TABLET PO SCH (10:18)
[2020-10-02] MEDS: FAMOTIDINE (10MG/ML) 2ML VL IV SCH ×2 (10:18→22:22)
[2020-10-02] MEDS: CHOLECALCIFEROL (VITD3) 2,000 UNIT CAP/TAB PO SCH (10:19)
[2020-10-02] MEDS: ASCORBIC ACID 1,000 MG TAB PO SCH (10:19)
[2020-10-02] MEDS: cefTRIAXone 1GM/50ML D5W 50 ML IV SCH (10:19)
[2020-10-02] MEDS: AZITHROMYCIN 500MG/ 250ML 250 ML IV SCH (11:16)
[2020-10-02] MEDS: INSULIN LANTUS (GLARGINE) 1 /0.01ml (100units/ml) SC SCH ×2 (12:49→22:43)
[2020-10-02 16:00] VITALS: BP 107/72
[2020-10-03] VITALS: BP 104/65
[2020-10-03 00:14] VITALS: BP 104/65
[2020-10-03] MEDS: InsuLIN REG 1unit/0.01ml Soln (100units/ml) SC SCH ×4 (06:30→23:16)
[2020-10-03] MEDS: ACCU-CHEK COMFORT CURVE STRIP VI SCH ×4 (06:30→22:34)
[2020-10-03] MEDS: ALBUTEROL SULF HFA 90MCG INH 200DOSE IN PRN ×2 (06:30→18:50)
[2020-10-03] MEDS: SALINE 0.65 % NASAL SPRAY 45ML BOTTLE EACHNOSTRI SCH ×4 (06:30→22:33)
[2020-10-03] MEDS: BUDESONIDE (INHALATION) 180 MCG IH IN SCH ×2 (06:30→18:50)
[2020-10-03 08:00] VITALS: BP 122/85
[2020-10-03] MEDS: INSULIN LANTUS (GLARGINE) 1 /0.01ml (100units/ml) SC SCH ×2 (10:00→23:15)
[2020-10-03] MEDS: cefTRIAXone 1GM/50ML D5W 50 ML IV SCH (10:48)
[2020-10-03] MEDS: DexAMETHasone SOD PHOS 10MG/1ML VIAL INJ IV SCH ×2 (10:49→22:34)
[2020-10-03] MEDS: FAMOTIDINE (10MG/ML) 2ML VL IV SCH ×2 (10:50→22:34)
[2020-10-03] MEDS: FUROSEMIDE 40 MG/4 ML VIAL IV SCH (10:50)
[2020-10-03] MEDS: AZITHROMYCIN 500MG/ 250ML 250 ML IV SCH (10:51)
[2020-10-03] MEDS: ZINC SULFATE 220mg CAP or TAB PO SCH (10:51)
[2020-10-03] MEDS: POTASSIUM CHL 10 Meq TABLET PO SCH (10:52)
[2020-10-03] MEDS: ENOXAPARIN SOD 100 MG/1 ML SYRINGE SC SCH ×2 (10:53→22:34)
[2020-10-03] MEDS: ASCORBIC ACID 1,000 MG TAB PO SCH (10:53)
[2020-10-03] MEDS: CHOLECALCIFEROL (VITD3) 2,000 UNIT CAP/TAB PO SCH (10:53)
[2020-10-03] MEDS: LORazepam 0.5 MG TAB PO PRN (13:52)
[2020-10-03 16:00] VITALS: BP 105/76
[2020-10-03 16:06] VITALS: BP 117/85
[2020-10-04] VITALS: BP 118/77
[2020-10-04] MEDS: SALINE 0.65 % NASAL SPRAY 45ML BOTTLE EACHNOSTRI SCH ×4 (06:00→22:43)
[2020-10-04] MEDS: ACCU-CHEK COMFORT CURVE STRIP VI SCH ×4 (06:29→21:48)
[2020-10-04] MEDS: InsuLIN REG 1unit/0.01ml Soln (100units/ml) SC SCH ×4 (06:30→21:46)
[2020-10-04] MEDS: LORazepam 0.5 MG TAB PO PRN (06:34)
[2020-10-04 08:00] VITALS: BP 115/69
[2020-10-04 08:25] LABS: BUN/Creatinine Ratio 36.3; Calcium 8.1 mg/dL (8.5-10.1); Potassium 4.2 mmol/L (3.5-5.1)
[2020-10-04] MEDS: ALBUTEROL SULF HFA 90MCG INH 200DOSE IN PRN (08:30)
[2020-10-04] MEDS: BUDESONIDE (INHALATION) 180 MCG IH IN SCH ×2 (08:30→22:13)
[2020-10-04] MEDS: ENOXAPARIN SOD 100 MG/1 ML SYRINGE SC SCH ×2 (10:14→21:18)
[2020-10-04] MEDS: FAMOTIDINE (10MG/ML) 2ML VL IV SCH ×2 (10:14→21:18)
[2020-10-04] MEDS: DexAMETHasone SOD PHOS 10MG/1ML VIAL INJ IV SCH ×2 (10:14→21:48)
[2020-10-04] MEDS: FUROSEMIDE 40 MG/4 ML VIAL IV SCH (10:14)
[2020-10-04] MEDS: cefTRIAXone 1GM/50ML D5W 50 ML IV SCH (10:15)
[2020-10-04] MEDS: ZINC SULFATE 220mg CAP or TAB PO SCH (10:15)
[2020-10-04] MEDS: POTASSIUM CHL 10 Meq TABLET PO SCH (10:15)
[2020-10-04] MEDS: CHOLECALCIFEROL (VITD3) 2,000 UNIT CAP/TAB PO SCH (10:15)
[2020-10-04] MEDS: ASCORBIC ACID 1,000 MG TAB PO SCH (10:15)
[2020-10-04] MEDS: AZITHROMYCIN 500MG/ 250ML 250 ML IV SCH (11:55)
[2020-10-04] MEDS: INSULIN LANTUS (GLARGINE) 1 /0.01ml (100units/ml) SC SCH ×2 (11:56→21:47)
[2020-10-04 16:00] VITALS: BP 112/73
[2020-10-05] VITALS: BP 125/71
[2020-10-05] MEDS: InsuLIN REG 1unit/0.01ml Soln (100units/ml) SC SCH ×4 (06:19→22:41)
[2020-10-05] MEDS: ACCU-CHEK COMFORT CURVE STRIP VI SCH ×4 (06:20→22:48)
[2020-10-05 07:11] LABS: Basophils # (auto) 0.1 10 ^3/uL (0-0.2); Basophils % (auto) 0.6 % (0.0-2.0); Eosinophils # (auto) 0 10 ^3/uL (0-0.8); Hematocrit 42.8 % (41.0-53.0); Hemoglobin 14.9 g/dL (13.5-17.5); Lymphocytes # (auto) 0.3 10 ^3/uL (0.4-5.4); Lymphocytes % (auto) 3.3 % (10.0-50.0); Mean Corpuscular Hemoglobin 28.6 pg (28.0-32.0); Mean Corpuscular Hgb Conc. 34.7 g/dL (32.0-36.0); Mean Corpuscular Volume 82.3 fL (80.0-100.0); Monocytes # (auto) 0.4 10 ^3/uL (0-1.3); Monocytes % (auto) 4.4 % (0.0-12.0); Neutrophils # (auto) 8.2 10 ^3/uL (1.6-8.6); Neutrophils % (auto) 91.7 % (37.0-80.0); Nucleated Red Blood Cells % 0.1 %; Platelet Count (auto) 247 10^3/uL (140-450); White Blood Cell 8.9 10^3/uL (4.4-10.8)
[2020-10-05 07:12] LABS: INR 1.13 (0.9-1.15)
[2020-10-05 07:13] LABS: Albumin 2.8 g/dL (3.4-5.0); BUN/Creatinine Ratio 37.1; Calcium 7.9 mg/dL (8.5-10.1); Magnesium 2.7 mg/dL (1.6-2.6); Potassium 4.4 mmol/L (3.5-5.1)
[2020-10-05 07:16] LABS: Total Protein 6.2 g/dL (6.4-8.2)
[2020-10-05 08:00] VITALS: BP 103/70
[2020-10-05] MEDS: LORazepam 0.5 MG TAB PO PRN ×3 (08:59→22:03)
[2020-10-05] MEDS: ENOXAPARIN SOD 100 MG/1 ML SYRINGE SC SCH ×2 (09:49→22:05)
[2020-10-05] MEDS: DexAMETHasone SOD PHOS 10MG/1ML VIAL INJ IV SCH ×2 (09:50→22:03)
[2020-10-05] MEDS: FUROSEMIDE 40 MG/4 ML VIAL IV SCH (09:50)
[2020-10-05] MEDS: FAMOTIDINE (10MG/ML) 2ML VL IV SCH ×2 (09:50→22:04)
[2020-10-05] MEDS: CHOLECALCIFEROL (VITD3) 2,000 UNIT CAP/TAB PO SCH (09:51)
[2020-10-05] MEDS: POTASSIUM CHL 10 Meq TABLET PO SCH (09:51)
[2020-10-05] MEDS: cefTRIAXone 1GM/50ML D5W 50 ML IV SCH (09:51)
[2020-10-05] MEDS: ASCORBIC ACID 1,000 MG TAB PO SCH (09:51)
[2020-10-05] MEDS: ZINC SULFATE 220mg CAP or TAB PO SCH (09:51)
[2020-10-05] MEDS: BUDESONIDE (INHALATION) 180 MCG IH IN SCH ×2 (10:27→19:59)
[2020-10-05] MEDS: AZITHROMYCIN 500MG/ 250ML 250 ML IV SCH (10:45)
[2020-10-05] MEDS: SALINE 0.65 % NASAL SPRAY 45ML BOTTLE EACHNOSTRI SCH ×3 (11:10→22:00)
[2020-10-05] MEDS: INSULIN LANTUS (GLARGINE) 1 /0.01ml (100units/ml) SC SCH ×2 (11:43→22:42)
[2020-10-05 16:10] VITALS: BP 123/72
[2020-10-05] MEDS: ALBUTEROL SULF HFA 90MCG INH 200DOSE IN PRN (20:00)
[2020-10-06 00:22] VITALS: BP 109/73
[2020-10-06] MEDS: SALINE 0.65 % NASAL SPRAY 45ML BOTTLE EACHNOSTRI SCH ×4 (06:00→22:00)
[2020-10-06] MEDS: ACCU-CHEK COMFORT CURVE STRIP VI SCH ×4 (06:59→21:49)
[2020-10-06] MEDS: InsuLIN REG 1unit/0.01ml Soln (100units/ml) SC SCH ×4 (07:00→22:00)
[2020-10-06 08:00] VITALS: BP 115/76
[2020-10-06 08:43] LABS: BUN/Creatinine Ratio 37.2; Calcium 8.1 mg/dL (8.5-10.1)
[2020-10-06] MEDS: BUDESONIDE (INHALATION) 180 MCG IH IN SCH ×2 (10:00→19:00)
[2020-10-06] MEDS: DexAMETHasone SOD PHOS 10MG/1ML VIAL INJ IV SCH ×2 (10:16→21:48)
[2020-10-06] MEDS: cefTRIAXone 1GM/50ML D5W 50 ML IV SCH (10:16)
[2020-10-06] MEDS: FAMOTIDINE (10MG/ML) 2ML VL IV SCH ×2 (10:17→21:48)
[2020-10-06] MEDS: FUROSEMIDE 40 MG/4 ML VIAL IV SCH (10:17)
[2020-10-06] MEDS: POTASSIUM CHL 10 Meq TABLET PO SCH (10:17)
[2020-10-06] MEDS: ZINC SULFATE 220mg CAP or TAB PO SCH (10:17)
[2020-10-06] MEDS: ASCORBIC ACID 1,000 MG TAB PO SCH (10:18)
[2020-10-06] MEDS: INSULIN LANTUS (GLARGINE) 1 /0.01ml (100units/ml) SC SCH ×2 (10:18→21:51)
[2020-10-06] MEDS: CHOLECALCIFEROL (VITD3) 2,000 UNIT CAP/TAB PO SCH (10:19)
[2020-10-06] MEDS: ENOXAPARIN SOD 100 MG/1 ML SYRINGE SC SCH ×2 (10:19→21:50)
[2020-10-06] MEDS: AZITHROMYCIN 500MG/ 250ML 250 ML IV SCH (10:31)
[2020-10-06] MEDS: HYDROcodone-ACET 5/325MG TAB PO PRN (10:31)
[2020-10-06 16:00] VITALS: BP 124/83
[2020-10-06] MEDS: ALBUTEROL SULF HFA 90MCG INH 200DOSE IN PRN (19:00)
[2020-10-06] MEDS: LORazepam 0.5 MG TAB PO PRN (23:10)
[2020-10-07] VITALS: BP 125/88
[2020-10-07] MEDS: SALINE 0.65 % NASAL SPRAY 45ML BOTTLE EACHNOSTRI SCH ×4 (06:00→21:25)
[2020-10-07] MEDS: ACCU-CHEK COMFORT CURVE STRIP VI SCH ×4 (06:22→21:27)
[2020-10-07] MEDS: InsuLIN REG 1unit/0.01ml Soln (100units/ml) SC SCH ×4 (06:25→21:43)
[2020-10-07 07:24] LABS: Basophils # (auto) 0 10 ^3/uL (0-0.2); Eosinophils # (auto) 0 10 ^3/uL (0-0.8); Hematocrit 44.3 % (41.0-53.0); Hemoglobin 15.4 g/dL (13.5-17.5); Lymphocytes # (auto) 0.5 10 ^3/uL (0.4-5.4); Lymphocytes % (auto) 5.4 % (10.0-50.0); Mean Corpuscular Hemoglobin 28.5 pg (28.0-32.0); Mean Corpuscular Hgb Conc. 34.8 g/dL (32.0-36.0); Monocytes # (auto) 0.4 10 ^3/uL (0-1.3); Monocytes % (auto) 4.7 % (0.0-12.0); Neutrophils # (auto) 8.5 10 ^3/uL (1.6-8.6); Neutrophils % (auto) 89.9 % (37.0-80.0); Nucleated Red Blood Cells % 0.1 %; Platelet Count (auto) 246 10^3/uL (140-450); Red Cell Distribution Width 13.7 % (11.8-14.3); White Blood Cell 9.5 10^3/uL (4.4-10.8)
[2020-10-07 08:00] VITALS: BP 121/85
[2020-10-07] MEDS: cefTRIAXone 1GM/50ML D5W 50 ML IV SCH (09:35)
[2020-10-07] MEDS: DexAMETHasone SOD PHOS 10MG/1ML VIAL INJ IV SCH ×2 (09:35→21:25)
[2020-10-07] MEDS: POTASSIUM CHL 10 Meq TABLET PO SCH (09:36)
[2020-10-07] MEDS: FUROSEMIDE 40 MG/4 ML VIAL IV SCH (09:36)
[2020-10-07] MEDS: FAMOTIDINE (10MG/ML) 2ML VL IV SCH ×2 (09:36→21:26)
[2020-10-07] MEDS: ZINC SULFATE 220mg CAP or TAB PO SCH (09:36)
[2020-10-07] MEDS: ENOXAPARIN SOD 100 MG/1 ML SYRINGE SC SCH ×2 (09:37→21:28)
[2020-10-07] MEDS: CHOLECALCIFEROL (VITD3) 2,000 UNIT CAP/TAB PO SCH (09:37)
[2020-10-07] MEDS: INSULIN LANTUS (GLARGINE) 1 /0.01ml (100units/ml) SC SCH ×2 (09:37→21:32)
[2020-10-07] MEDS: ASCORBIC ACID 1,000 MG TAB PO SCH (09:37)
[2020-10-07] MEDS: BUDESONIDE (INHALATION) 180 MCG IH IN SCH ×2 (10:10→20:01)
[2020-10-07] MEDS: AZITHROMYCIN 500MG/ 250ML 250 ML IV SCH (10:10)
[2020-10-07] MEDS: ALBUTEROL SULF HFA 90MCG INH 200DOSE IN PRN ×2 (10:11→20:01)
[2020-10-07] MEDS: LORazepam 0.5 MG TAB PO PRN (12:08)
[2020-10-07 16:00] VITALS: BP 122/67
[2020-10-07] MEDS: HYDROcodone-ACET 5/325MG TAB PO PRN (20:11)
[2020-10-08] VITALS (18 sets, daily range): BP systolic 85–196; BP diastolic 52–100
[2020-10-08] MEDS: HYDROcodone-ACET 5/325MG TAB PO PRN ×2 (00:11→04:16)
[2020-10-08] MEDS: LORazepam 0.5 MG TAB PO PRN ×2 (03:24→10:55)
[2020-10-08] MEDS: SALINE 0.65 % NASAL SPRAY 45ML BOTTLE EACHNOSTRI SCH ×4 (05:29→22:35)
[2020-10-08] MEDS: InsuLIN REG 1unit/0.01ml Soln (100units/ml) SC SCH ×4 (06:08→22:09)
[2020-10-08 06:12] LABS: Basophils # (auto) 0.1 10 ^3/uL (0-0.2); Basophils % (auto) 0.3 % (0.0-2.0); Eosinophils # (auto) 0 10 ^3/uL (0-0.8); Hematocrit 46.7 % (41.0-53.0); Hemoglobin 16.4 g/dL (13.5-17.5); Lymphocytes # (auto) 0.6 10 ^3/uL (0.4-5.4); Lymphocytes % (auto) 3.4 % (10.0-50.0); Mean Corpuscular Volume 82.7 fL (80.0-100.0); Monocytes # (auto) 0.8 10 ^3/uL (0-1.3); Monocytes % (auto) 4.9 % (0.0-12.0); Neutrophils # (auto) 15.2 10 ^3/uL (1.6-8.6); Neutrophils % (auto) 91.4 % (37.0-80.0); Platelet Count (auto) 270 10^3/uL (140-450); Red Blood Cells 5.65 10^6/uL (4.5-5.90); Red Cell Distribution Width 13.7 % (11.8-14.3); White Blood Cell 16.6 10^3/uL (4.4-10.8)
[2020-10-08] MEDS: ACCU-CHEK COMFORT CURVE STRIP VI SCH ×4 (06:29→22:33)
[2020-10-08 06:32] LABS: CRP High Sensitivity 0.06 mg/dL (< 0.3); Potassium 3.9 mmol/L (3.5-5.1)
[2020-10-08 06:42] LABS: BUN/Creatinine Ratio 53.1; Calcium 8.1 mg/dL (8.5-10.1)
[2020-10-08] MEDS: BUDESONIDE (INHALATION) 180 MCG IH IN SCH ×2 (10:26→22:00)
[2020-10-08] MEDS: ALBUTEROL SULF HFA 90MCG INH 200DOSE IN PRN (10:26)
[2020-10-08] MEDS: cefTRIAXone 1GM/50ML D5W 50 ML IV SCH (10:54)
[2020-10-08] MEDS: FAMOTIDINE (10MG/ML) 2ML VL IV SCH ×2 (10:55→22:07)
[2020-10-08] MEDS: ENOXAPARIN SOD 100 MG/1 ML SYRINGE SC SCH ×2 (10:55→22:00)
[2020-10-08] MEDS: POTASSIUM CHL 10 Meq TABLET PO SCH (10:55)
[2020-10-08] MEDS: ZINC SULFATE 220mg CAP or TAB PO SCH (10:55)
[2020-10-08] MEDS: CHOLECALCIFEROL (VITD3) 2,000 UNIT CAP/TAB PO SCH (10:56)
[2020-10-08] MEDS: DexAMETHasone SOD PHOS 10MG/1ML VIAL INJ IV SCH ×2 (10:56→22:07)
[2020-10-08] MEDS: ASCORBIC ACID 1,000 MG TAB PO SCH (10:56)
[2020-10-08] MEDS: FUROSEMIDE 40 MG/4 ML VIAL IV SCH (10:57)
[2020-10-08] MEDS: INSULIN LANTUS (GLARGINE) 1 /0.01ml (100units/ml) SC SCH ×2 (11:22→22:32)
[2020-10-08] MEDS ORDERED: LORazepam 2MG/ML-1ML VIAL IV PRN (12:00)
[2020-10-08] MEDS: AZITHROMYCIN 500MG/ 250ML 250 ML IV SCH (12:03)
[2020-10-08] MEDS: ERGOCALCIFEROL 50,000 UNIT(1.25MG) CAP PO SCH (14:35)
[2020-10-08] MEDS ORDERED: ROCURONIUM 10MG/ML 10ML VIAL IV ONE ×2 (15:14→16:45)
[2020-10-08] MEDS ORDERED: ETOMIDATE (2MG/ML) 20ML VIAL IV ONE ×2 (15:15→16:45)
[2020-10-08] MEDS ORDERED: fentaNYL Drip 2500mCg/250mlNS 250 ML IV ONE (15:37)
[2020-10-08] MEDS ORDERED: MIDAZOLAM DRIP 50 mg/50mL 50 ML IV ONE (15:39)
[2020-10-08] MEDS ORDERED: PROPOFOL 100 ML IV ONE (16:16)
[2020-10-08] MEDS: PROPOFOL 100 ML IV SCH (16:45)
[2020-10-08] MEDS ORDERED: NOREPINEPHRINE 8 MG/250ML KIT 250 ML IV SCH (16:45)
[2020-10-08] MEDS: fentaNYL Drip 2500mCg/250mlNS 250 ML IV SCH (16:45)
[2020-10-08] MEDS: MIDAZOLAM DRIP 50 mg/50mL 50 ML IV SCH ×2 (16:45→21:00)
[2020-10-08 22:27] LABS: Hematocrit 42.4 % (41.0-53.0); Hemoglobin 13.9 g/dL (13.5-17.5); Mean Corpuscular Hemoglobin 27.9 pg (28.0-32.0); Mean Corpuscular Hgb Conc. 32.9 g/dL (32.0-36.0); Mean Corpuscular Volume 84.7 fL (80.0-100.0); Platelet Count (auto) 313 10^3/uL (140-450); Red Cell Distribution Width 13.7 % (11.8-14.3); White Blood Cell 27.8 10^3/uL (4.4-10.8)
[2020-10-08 22:35] LABS: Basophils % (manual) 0 (0.0-2.0); Blast Cells 0; Eosinophils % (manual) 0 (0-7); Metamyelocytes % 0; Myelocytes % 0; Promyelocytes % 0; Reactive Lymphocytes 0
[2020-10-08 22:42] LABS: BUN/Creatinine Ratio 35.2; Calcium 7.4 mg/dL (8.5-10.1); Magnesium 2.9 mg/dL (1.6-2.6); Potassium 4.3 mmol/L (3.5-5.1)
[2020-10-08 22:43] LABS: INR 1.2 (0.9-1.15); Partial Thromboplastin Time 29.9 sec (23.0-31.2)
[2020-10-08 23:33] LABS: Band Neutrophils % (manual) 2; Lymphocytes % (manual) 11 (10.0-50.0); Monocytes % (manual) 12 (0-12)
[2020-10-09] VITALS (64 sets, daily range): BP systolic 74–153; BP diastolic 18–88
[2020-10-09] MEDS: MIDAZOLAM DRIP 50 mg/50mL 50 ML IV SCH (03:33)
[2020-10-09] MEDS ORDERED: SODIUM CHLORIDE 0.9% 500 ML IV ONE ×3 (04:00→14:15)
[2020-10-09 05:01] LABS: Hematocrit 38.9 % (41.0-53.0); Hemoglobin 12.9 g/dL (13.5-17.5); Mean Corpuscular Hemoglobin 28.1 pg (28.0-32.0); Mean Corpuscular Hgb Conc. 33.1 g/dL (32.0-36.0); Mean Corpuscular Volume 84.8 fL (80.0-100.0); Platelet Count (auto) 296 10^3/uL (140-450); Red Blood Cells 4.59 10^6/uL (4.5-5.90)
[2020-10-09] MEDS ORDERED: PHENYLEPHRINE IV 250 ML IV ONE (05:09)
[2020-10-09 05:15] LABS: Albumin 2.6 g/dL (3.4-5.0); Calcium 7.4 mg/dL (8.5-10.1); Magnesium 2.9 mg/dL (1.6-2.6); Potassium 5.1 mmol/L (3.5-5.1)
[2020-10-09 05:19] LABS: BUN/Creatinine Ratio 38.7; Bilirubin, Total 0.8 mg/dL (0.2-1.0); Total Protein 5.4 g/dL (6.4-8.2)
[2020-10-09] MEDS: fentaNYL Drip 2500mCg/250mlNS 250 ML IV SCH ×2 (05:38→21:27)
[2020-10-09] MEDS ORDERED: VASOPRESSIN 20 UNIT/ML ONE (05:44)
[2020-10-09 05:45] LABS: White Blood Cell 39.1 10^3/uL (4.4-10.8)
[2020-10-09] MEDS ORDERED: VASOPRESSIN 50 UNITS in D5W 5% 247.5 ML IV SCH ×2 (05:45→12:45)
[2020-10-09] MEDS ORDERED: PHENYLEPHRINE IV 250 ML IV SCH (05:45)
[2020-10-09 05:47] LABS: Basophils % (manual) 0 (0.0-2.0); Blast Cells 0; Eosinophils % (manual) 0 (0-7); Myelocytes % 0; Promyelocytes % 0; Reactive Lymphocytes 0
[2020-10-09] MEDS: ACCU-CHEK COMFORT CURVE STRIP VI SCH ×4 (07:00→21:32)
[2020-10-09] MEDS ORDERED: VANCOMYCIN PER PHARMACY 0 MG IV SCH (08:00)
[2020-10-09 08:33] LABS: Band Neutrophils % (manual) 7; Lymphocytes % (manual) 4 (10.0-50.0); Metamyelocytes % 1; Monocytes % (manual) 2 (0-12)
[2020-10-09] MEDS ORDERED: SODIUM BICARBONATE 8.4 % INJ 50ML VIAL IV ONE ×2 (08:45→08:48)
[2020-10-09] MEDS: cefTRIAXone 1GM/50ML D5W 50 ML IV SCH (09:00)
[2020-10-09] MEDS: INSULIN LANTUS (GLARGINE) 1 /0.01ml (100units/ml) SC SCH ×2 (10:00→21:32)
[2020-10-09] MEDS: AZITHROMYCIN 500MG/ 250ML 250 ML IV SCH (10:00)
[2020-10-09] MEDS: ZINC SULFATE 220mg CAP or TAB PO SCH (10:00)
[2020-10-09] MEDS: DexAMETHasone SOD PHOS 10MG/1ML VIAL INJ IV SCH ×2 (10:00→21:28)
[2020-10-09] MEDS: FAMOTIDINE (10MG/ML) 2ML VL IV SCH (10:00)
[2020-10-09] MEDS: ASCORBIC ACID 1,000 MG TAB PO SCH (10:00)
[2020-10-09] MEDS: SODIUM CHLORIDE 0.9% 1,000 ML IV SCH ×3 (10:26→17:29)
[2020-10-09] MEDS ORDERED: PIPERACILLIN-TAZOB 3.375GM 100 ML IV ONE (10:30)
[2020-10-09] MEDS: FUROSEMIDE 40 MG/4 ML VIAL IV SCH (11:12)
[2020-10-09] MEDS: SALINE 0.65 % NASAL SPRAY 45ML BOTTLE EACHNOSTRI SCH ×2 (11:12→11:50)
[2020-10-09] MEDS: ENOXAPARIN SOD 100 MG/1 ML SYRINGE SC SCH ×2 (11:13→21:34)
[2020-10-09] MEDS: POTASSIUM CHL 10 Meq TABLET PO SCH (11:49)
[2020-10-09] MEDS: CHOLECALCIFEROL (VITD3) 2,000 UNIT CAP/TAB PO SCH (11:50)
[2020-10-09] MEDS: NOREPINEPHRINE BITARTRATE 32 MG in SODIUM CHL 0.9% 218 ML IV SCH (11:50)
[2020-10-09] MEDS ORDERED: VANCOMYCIN 1GM/250ML 250 ML IV SCH (12:00)
[2020-10-09] MEDS ORDERED: MEROPENEM 1GM IVPB 100 ML IV ONE (12:45)
[2020-10-09] MEDS ORDERED: LINEZOLID 600MG/300ML 300 ML IV SCH ×2 (12:45→22:00)
[2020-10-09] MEDS: PHENYLEPHRINE INJ 80 MG in SODIUM CHL 0.9% 242 ML IV SCH (12:46)
[2020-10-09] MEDS: InsuLIN REG 1unit/0.01ml Soln (100units/ml) SC SCH ×3 (12:47→21:33)
[2020-10-09] MEDS ORDERED: ALBUMIN 25% 100 ML IV ONE (13:15)
[2020-10-09] MEDS: PROPOFOL 100 ML IV SCH (17:29)
[2020-10-09] MEDS ORDERED: PIPERACILLIN-TAZOB 3.375GM 100 ML IV SCH (18:00)
[2020-10-09] MEDS: LINEZOLID 600MG/300ML 300 ML IV SCH (18:27)
[2020-10-09] MEDS: MEROPENEM 1GM IVPB 100 ML IV SCH (21:29)
[2020-10-09] MEDS: PANTOPRAZOLE 40 MG/10 ML VIAL INJ IV SCH (21:30)
[2020-10-10] VITALS (60 sets, daily range): BP systolic 84–169; BP diastolic 30–93
[2020-10-10] MEDS: SODIUM CHLORIDE 0.9% 1,000 ML IV SCH ×2 (00:21→16:12)
[2020-10-10] MEDS: LINEZOLID 600MG/300ML 300 ML IV SCH ×2 (02:00→14:12)
[2020-10-10 05:13] LABS: INR 1.48 (0.9-1.15)
[2020-10-10 05:19] LABS: Hematocrit 27.1 % (41.0-53.0); Hemoglobin 8.9 g/dL (13.5-17.5); Mean Corpuscular Hemoglobin 28.8 pg (28.0-32.0); Mean Corpuscular Volume 87.2 fL (80.0-100.0); Platelet Count (auto) 171 10^3/uL (140-450); Red Cell Distribution Width 14.5 % (11.8-14.3); White Blood Cell 28.6 10^3/uL (4.4-10.8)
[2020-10-10 05:20] LABS: Potassium 4.8 mmol/L (3.5-5.1)
[2020-10-10 05:29] LABS: Albumin 2.6 g/dL (3.4-5.0); Bilirubin, Total 0.6 mg/dL (0.2-1.0); Calcium 6.9 mg/dL (8.5-10.1); Total Protein 4.8 g/dL (6.4-8.2)
[2020-10-10 05:46] LABS: Protein, Urine 109.4 mg/dL (0.0-11.9)
[2020-10-10 06:03] LABS: Basophils % (manual) 0 (0.0-2.0); Blast Cells 0; Eosinophils % (manual) 0 (0-7); Metamyelocytes % 0; Myelocytes % 0; Promyelocytes % 0; Reactive Lymphocytes 0
[2020-10-10] MEDS: ACCU-CHEK COMFORT CURVE STRIP VI SCH ×3 (06:40→12:20)
[2020-10-10] MEDS: InsuLIN REG 1unit/0.01ml Soln (100units/ml) SC SCH ×3 (06:40→18:19)
[2020-10-10 06:45] LABS: Band Neutrophils % (manual) 4; Lymphocytes % (manual) 1 (10.0-50.0); Monocytes % (manual) 4 (0-12)
[2020-10-10] MEDS: MIDAZOLAM DRIP 50 mg/50mL 50 ML IV SCH ×3 (09:00→18:43)
[2020-10-10] MEDS: fentaNYL Drip 2500mCg/250mlNS 250 ML IV SCH (09:00)
[2020-10-10] MEDS: DexAMETHasone SOD PHOS 10MG/1ML VIAL INJ IV SCH ×2 (10:00→22:00)
[2020-10-10] MEDS: MEROPENEM 1GM IVPB 100 ML IV SCH ×2 (10:13→22:00)
[2020-10-10] MEDS: ZINC SULFATE 220mg CAP or TAB PO SCH (10:14)
[2020-10-10] MEDS: ASCORBIC ACID 1,000 MG TAB PO SCH (10:14)
[2020-10-10] MEDS: ENOXAPARIN SOD 100 MG/1 ML SYRINGE SC SCH ×2 (10:14→22:00)
[2020-10-10] MEDS: PANTOPRAZOLE 40 MG/10 ML VIAL INJ IV SCH ×2 (10:14→22:00)
[2020-10-10] MEDS: CHOLECALCIFEROL (VITD3) 2,000 UNIT CAP/TAB PO SCH (10:14)
[2020-10-10] MEDS: INSULIN LANTUS (GLARGINE) 1 /0.01ml (100units/ml) SC SCH (10:25)
[2020-10-10] MEDS: NOREPINEPHRINE BITARTRATE 32 MG in SODIUM CHL 0.9% 218 ML IV SCH (10:45)
[2020-10-10] MEDS ORDERED: SODIUM CHLORIDE 0.9% 1,000 ML IV SCH (11:30)
[2020-10-10] MEDS ORDERED: FUROSEMIDE 40 MG/4 ML VIAL IV ONE (11:30)
[2020-10-10] MEDS: PHENYLEPHRINE INJ 80 MG in SODIUM CHL 0.9% 242 ML IV SCH (12:45)
[2020-10-10] MEDS ORDERED: SODIUM CHLORIDE 0.9% 1,000 ML IV ONE (16:15)
[2020-10-10] MEDS: SODIUM CHLOR 0.9% PF (SALINE LOCK) 10ML VIAL/SYR IV SCH (22:00)
[2020-10-11] VITALS (35 sets, daily range): BP systolic 96–220; BP diastolic 39–110
[2020-10-11] MEDS: ACCU-CHEK COMFORT CURVE STRIP VI SCH ×5 (00:10→22:00)
[2020-10-11] MEDS: InsuLIN REG 1unit/0.01ml Soln (100units/ml) SC SCH ×4 (00:33→18:09)
[2020-10-11] MEDS: INSULIN LANTUS (GLARGINE) 1 /0.01ml (100units/ml) SC SCH ×2 (00:37→10:00)
[2020-10-11] MEDS: LINEZOLID 600MG/300ML 300 ML IV SCH ×2 (02:00→12:52)
[2020-10-11 05:18] LABS: Mean Corpuscular Hemoglobin 28.8 pg (28.0-32.0); Mean Corpuscular Hgb Conc. 32.8 g/dL (32.0-36.0); Mean Corpuscular Volume 87.9 fL (80.0-100.0); Platelet Count (auto) 133 10^3/uL (140-450); Red Blood Cells 2.16 10^6/uL (4.5-5.90); Red Cell Distribution Width 15.1 % (11.8-14.3)
[2020-10-11 05:30] LABS: INR 2.05 (0.9-1.15)
[2020-10-11 05:31] LABS: Lactic Acid w/Reflex 4.7 mmol/L (0.4-2.0)
[2020-10-11 05:41] LABS: Calcium 6.7 mg/dL (8.5-10.1); Potassium 4.5 mmol/L (3.5-5.1)
[2020-10-11 05:54] LABS: Albumin 2.2 g/dL (3.4-5.0); BUN/Creatinine Ratio 26.5; Bilirubin, Total 0.9 mg/dL (0.2-1.0); Magnesium 2.7 mg/dL (1.6-2.6)
[2020-10-11 06:12] LABS: Hemoglobin 6.2 g/dL (13.5-17.5); White Blood Cell 31.1 10^3/uL (4.4-10.8)
[2020-10-11 06:14] LABS: Basophils % (manual) 0 (0.0-2.0); Blast Cells 0; Eosinophils % (manual) 0 (0-7); Metamyelocytes % 0; Myelocytes % 0; Promyelocytes % 0; Reactive Lymphocytes 0
[2020-10-11 06:56] LABS: Band Neutrophils % (manual) 3; Lymphocytes % (manual) 3 (10.0-50.0); Monocytes % (manual) 5 (0-12)
[2020-10-11] MEDS: SODIUM CHLORIDE 0.9% 1,000 ML IV SCH (08:40)
[2020-10-11] MEDS: DexAMETHasone SOD PHOS 10MG/1ML VIAL INJ IV SCH ×2 (10:00→22:00)
[2020-10-11] MEDS: ASCORBIC ACID 1,000 MG TAB PO SCH (10:00)
[2020-10-11] MEDS: ZINC SULFATE 220mg CAP or TAB PO SCH (10:00)
[2020-10-11] MEDS: CHOLECALCIFEROL (VITD3) 2,000 UNIT CAP/TAB PO SCH (10:00)
[2020-10-11] MEDS: PANTOPRAZOLE 40 MG/10 ML VIAL INJ IV SCH ×2 (10:00→22:00)
[2020-10-11] MEDS: ENOXAPARIN SOD 100 MG/1 ML SYRINGE SC SCH (10:00)
[2020-10-11] MEDS: MEROPENEM 1GM IVPB 100 ML IV SCH ×2 (10:00→22:00)
[2020-10-11] MEDS: SODIUM CHLOR 0.9% PF (SALINE LOCK) 10ML VIAL/SYR IV SCH ×2 (10:26→22:00)
[2020-10-11] MEDS: PHENYLEPHRINE INJ 80 MG in SODIUM CHL 0.9% 242 ML IV SCH (10:45)
[2020-10-11] MEDS: NOREPINEPHRINE BITARTRATE 32 MG in SODIUM CHL 0.9% 218 ML IV SCH (10:45)
[2020-10-11] MEDS ORDERED: PHYTONADIONE (VIT K)10 MG/ML 1ML VIAL SUBCUT ONE (11:00)
[2020-10-11] MEDS: FREE WATER GT SCH ×3 (12:23→22:00)
[2020-10-11] MEDS ORDERED: SODIUM CHLORIDE 0.9% 1,000 ML IV ONE (13:15)
[2020-10-11] MEDS: fentaNYL Drip 2500mCg/250mlNS 250 ML IV SCH (14:56)
[2020-10-12] VITALS (33 sets, daily range): BP systolic 69–214; BP diastolic 47–139
[2020-10-12 00:15] LABS: Hematocrit 25.3 % (41.0-53.0); Hemoglobin 8.7 g/dL (13.5-17.5); Mean Corpuscular Hemoglobin 29.9 pg (28.0-32.0); Mean Corpuscular Hgb Conc. 34.4 g/dL (32.0-36.0); Mean Corpuscular Volume 86.8 fL (80.0-100.0); Platelet Count (auto) 111 10^3/uL (140-450); Red Blood Cells 2.91 10^6/uL (4.5-5.90); Red Cell Distribution Width 14.5 % (11.8-14.3); White Blood Cell 23.3 10^3/uL (4.4-10.8)
[2020-10-12 00:19] LABS: Basophils % (manual) 0 (0.0-2.0); Blast Cells 0; Eosinophils % (manual) 0 (0-7); Myelocytes % 0; Promyelocytes % 0; Reactive Lymphocytes 0
[2020-10-12 00:34] LABS: BUN/Creatinine Ratio 33.3; Magnesium 2.7 mg/dL (1.6-2.6); Potassium 4.7 mmol/L (3.5-5.1)
[2020-10-12] MEDS ORDERED: PROPOFOL 100 ML IV ONE (01:00)
[2020-10-12] MEDS: PROPOFOL 100 ML IV SCH (01:00)
[2020-10-12 01:05] LABS: Band Neutrophils % (manual) 25; Lymphocytes % (manual) 2 (10.0-50.0); Metamyelocytes % 1; Monocytes % (manual) 5 (0-12)
[2020-10-12] MEDS: INSULIN LANTUS (GLARGINE) 1 /0.01ml (100units/ml) SC SCH ×3 (01:17→10:00)
[2020-10-12] MEDS: InsuLIN REG 1unit/0.01ml Soln (100units/ml) SC SCH ×4 (01:18→17:07)
[2020-10-12] MEDS: FREE WATER GT SCH ×6 (02:13→21:04)
[2020-10-12] MEDS: LINEZOLID 600MG/300ML 300 ML IV SCH ×2 (02:14→14:00)
[2020-10-12] MEDS: ACCU-CHEK COMFORT CURVE STRIP VI SCH ×4 (06:17→21:05)
[2020-10-12] MEDS: SODIUM CHLOR 0.9% PF (SALINE LOCK) 10ML VIAL/SYR IV SCH ×2 (10:00→21:05)
[2020-10-12] MEDS: ZINC SULFATE 220mg CAP or TAB PO SCH (10:00)
[2020-10-12] MEDS: PANTOPRAZOLE 40 MG/10 ML VIAL INJ IV SCH ×2 (10:00→21:04)
[2020-10-12] MEDS: ASCORBIC ACID 1,000 MG TAB PO SCH (10:00)
[2020-10-12] MEDS: MEROPENEM 1GM IVPB 100 ML IV SCH ×2 (10:00→17:52)
[2020-10-12] MEDS: CHOLECALCIFEROL (VITD3) 2,000 UNIT CAP/TAB PO SCH (10:00)
[2020-10-12] MEDS: DexAMETHasone SOD PHOS 10MG/1ML VIAL INJ IV SCH ×2 (10:00→21:04)
[2020-10-12] MEDS: PHENYLEPHRINE INJ 80 MG in SODIUM CHL 0.9% 242 ML IV SCH (10:45)
[2020-10-12] MEDS: NOREPINEPHRINE BITARTRATE 32 MG in SODIUM CHL 0.9% 218 ML IV SCH (10:45)
[2020-10-12] MEDS ORDERED: FUROSEMIDE 40 MG/4 ML VIAL IV ONE (11:15)
[2020-10-12 11:28] LABS: Hemoglobin 9.1 g/dL (13.5-17.5); Red Cell Distribution Width 15.1 % (11.8-14.3)
[2020-10-12 11:30] LABS: Hematocrit 26.9 % (41.0-53.0); Mean Corpuscular Hgb Conc. 33.8 g/dL (32.0-36.0); Mean Corpuscular Volume 88.7 fL (80.0-100.0); Platelet Count (auto) 124 10^3/uL (140-450); Red Blood Cells 3.03 10^6/uL (4.5-5.90)
[2020-10-12 11:41] LABS: INR 1.29 (0.9-1.15)
[2020-10-12 11:45] LABS: White Blood Cell 30.4 10^3/uL (4.4-10.8)
[2020-10-12 11:46] LABS: Basophils % (manual) 0 (0.0-2.0); Blast Cells 0; Eosinophils % (manual) 0 (0-7); Myelocytes % 0; Promyelocytes % 0; Reactive Lymphocytes 0
[2020-10-12 11:54] LABS: Albumin 2.2 g/dL (3.4-5.0); Calcium 6.5 mg/dL (8.5-10.1)
[2020-10-12 11:56] LABS: BUN/Creatinine Ratio 32.6; Bilirubin, Total 1.7 mg/dL (0.2-1.0); Total Protein 4.3 g/dL (6.4-8.2)
[2020-10-12 12:07] LABS: Potassium 5.6 mmol/L (3.5-5.1)
[2020-10-12 12:11] LABS: Band Neutrophils % (manual) 1; Lymphocytes % (manual) 4 (10.0-50.0); Metamyelocytes % 1; Monocytes % (manual) 8 (0-12)
[2020-10-12] MEDS ORDERED: CALCIUM GLUC 4.65meq/50ml D5AE 50 ML IV ONE (13:45)
[2020-10-12] MEDS ORDERED: InsuLIN REG 1unit/0.01ml Soln (100units/ml) IV ONE (13:45)
[2020-10-12] MEDS ORDERED: ALBUTEROL SULF 2.5 MG/0.5ML(0.5%) NEB SOLN NEB ONE (13:45)
[2020-10-12] MEDS ORDERED: SODIUM ZIRCONIUM CYCL 10 GM PAK PO ONE (13:45)
[2020-10-12] MEDS ORDERED: SODIUM BICARBONATE 8.4% INJ 50ML SYRINGE IV ONE (13:45)
[2020-10-12] MEDS ORDERED: DEXTROSE (50%) 50ML SYRG IV ONE (13:45)
[2020-10-12] MEDS: MIDAZOLAM DRIP 50 mg/50mL 50 ML IV SCH (16:45)
[2020-10-12] MEDS: fentaNYL Drip 2500mCg/250mlNS 250 ML IV SCH (16:45)
[2020-10-13] VITALS (71 sets, daily range): BP systolic 85–159; BP diastolic 49–86
[2020-10-13] MEDS: PROPOFOL 100 ML IV SCH ×2 (01:00→22:58)
[2020-10-13] MEDS: MEROPENEM 1GM IVPB 100 ML IV SCH ×3 (02:00→18:00)
[2020-10-13] MEDS: FREE WATER GT SCH ×6 (02:00→22:34)
[2020-10-13] MEDS: LINEZOLID 600MG/300ML 300 ML IV SCH ×2 (02:00→14:00)
[2020-10-13] MEDS ORDERED: PHENYLEPHRINE HCL 10 MG/ML VL ONE (04:01)
[2020-10-13] MEDS: ACCU-CHEK COMFORT CURVE STRIP VI SCH ×3 (05:20→18:00)
[2020-10-13] MEDS: InsuLIN REG 1unit/0.01ml Soln (100units/ml) SC SCH ×4 (05:21→18:00)
[2020-10-13 05:56] LABS: Hematocrit 27.6 % (41.0-53.0); Hemoglobin 9.1 g/dL (13.5-17.5); Mean Corpuscular Hemoglobin 30.6 pg (28.0-32.0); Mean Corpuscular Volume 92.7 fL (80.0-100.0); Platelet Count (auto) 108 10^3/uL (140-450); Red Blood Cells 2.98 10^6/uL (4.5-5.90); Red Cell Distribution Width 15.7 % (11.8-14.3)
[2020-10-13 06:01] LABS: INR 1.17 (0.9-1.15)
[2020-10-13 06:04] LABS: Calcium 6.5 mg/dL (8.5-10.1); Magnesium 2.7 mg/dL (1.6-2.6)
[2020-10-13 06:09] LABS: BUN/Creatinine Ratio 26.7; Bilirubin, Total 1.4 mg/dL (0.2-1.0); Total Protein 3.9 g/dL (6.4-8.2)
[2020-10-13 06:10] LABS: White Blood Cell 32.1 10^3/uL (4.4-10.8)
[2020-10-13 06:11] LABS: Basophils % (manual) 0 (0.0-2.0); Blast Cells 0; Eosinophils % (manual) 0 (0-7); Promyelocytes % 0; Reactive Lymphocytes 0
[2020-10-13 06:58] LABS: Band Neutrophils % (manual) 30; Lymphocytes % (manual) 4 (10.0-50.0); Metamyelocytes % 8; Monocytes % (manual) 2 (0-12); Myelocytes % 4
[2020-10-13 09:25] LABS: Potassium 5.7 mmol/L (3.5-5.1)
[2020-10-13] MEDS: CHOLECALCIFEROL (VITD3) 2,000 UNIT CAP/TAB PO SCH (10:00)
[2020-10-13] MEDS: INSULIN LANTUS (GLARGINE) 1 /0.01ml (100units/ml) SC SCH ×2 (10:00→22:38)
[2020-10-13] MEDS: ASCORBIC ACID 1,000 MG TAB PO SCH (10:00)
[2020-10-13] MEDS: SODIUM CHLOR 0.9% PF (SALINE LOCK) 10ML VIAL/SYR IV SCH ×2 (10:00→22:36)
[2020-10-13] MEDS: PANTOPRAZOLE 40 MG/10 ML VIAL INJ IV SCH ×2 (10:00→22:35)
[2020-10-13] MEDS: ZINC SULFATE 220mg CAP or TAB PO SCH (10:00)
[2020-10-13] MEDS: DexAMETHasone SOD PHOS 10MG/1ML VIAL INJ IV SCH ×2 (10:00→22:35)
[2020-10-13] MEDS: NOREPINEPHRINE BITARTRATE 32 MG in SODIUM CHL 0.9% 218 ML IV SCH (10:45)
[2020-10-13] MEDS ORDERED: DEXTROSE (50%) 50ML SYRG IV PRN (13:15)
[2020-10-13] MEDS: SODIUM ZIRCONIUM CYCL 10 GM PAK PO SCH ×2 (14:00→22:36)
[2020-10-13] MEDS ORDERED: SODIUM ZIRCONIUM CYCL 10 GM PAK PO ONE (14:00)
[2020-10-13] MEDS: PHENYLEPHRINE INJ 80 MG in SODIUM CHL 0.9% 242 ML IV SCH (14:55)
[2020-10-13] MEDS ORDERED: SODIUM BICARBONATE 8.4 % INJ 50ML VIAL IV ONE ×2 (15:00→15:28)
[2020-10-13] MEDS: MIDAZOLAM DRIP 50 mg/50mL 50 ML IV SCH ×3 (16:39→22:40)
[2020-10-13] MEDS: fentaNYL Drip 2500mCg/250mlNS 250 ML IV SCH ×2 (16:45→22:39)
[2020-10-14] VITALS (83 sets, daily range): BP systolic 71–134; BP diastolic 43–117
[2020-10-14] MEDS: ACCU-CHEK COMFORT CURVE STRIP VI SCH ×4 (00:06→18:00)
[2020-10-14] MEDS: InsuLIN REG 1unit/0.01ml Soln (100units/ml) SC SCH ×4 (00:08→17:15)
[2020-10-14] MEDS: MIDAZOLAM DRIP 50 mg/50mL 50 ML IV SCH ×4 (00:33→23:22)
[2020-10-14] MEDS: MEROPENEM 1GM IVPB 100 ML IV SCH ×3 (01:52→17:13)
[2020-10-14] MEDS: LINEZOLID 600MG/300ML 300 ML IV SCH ×2 (01:53→14:00)
[2020-10-14] MEDS: NOREPINEPHRINE BITARTRATE 32 MG in SODIUM CHL 0.9% 218 ML IV SCH ×2 (02:00→10:48)
[2020-10-14] MEDS: FREE WATER GT SCH ×6 (02:46→21:56)
[2020-10-14 06:03] LABS: Potassium 5.3 mmol/L (3.5-5.1)
[2020-10-14 06:15] LABS: Albumin 1.9 g/dL (3.4-5.0); BUN/Creatinine Ratio 26.6; Calcium 6.6 mg/dL (8.5-10.1); Magnesium 2.6 mg/dL (1.6-2.6); Phosphorus 4.3 mg/dL (2.5-4.90)
[2020-10-14 06:17] LABS: Bilirubin, Total 1.2 mg/dL (0.2-1.0); Total Protein 3.9 g/dL (6.4-8.2)
[2020-10-14 06:22] LABS: INR 1.04 (0.9-1.15); Partial Thromboplastin Time 30.8 sec (23.0-31.2)
[2020-10-14] MEDS: SODIUM ZIRCONIUM CYCL 10 GM PAK PO SCH ×3 (06:45→21:59)
[2020-10-14] MEDS: DexAMETHasone SOD PHOS 10MG/1ML VIAL INJ IV SCH ×2 (08:07→21:57)
[2020-10-14] MEDS: ASCORBIC ACID 1,000 MG TAB PO SCH (08:07)
[2020-10-14] MEDS: PANTOPRAZOLE 40 MG/10 ML VIAL INJ IV SCH ×2 (08:07→21:58)
[2020-10-14] MEDS: SODIUM CHLOR 0.9% PF (SALINE LOCK) 10ML VIAL/SYR IV SCH ×2 (08:07→21:58)
[2020-10-14] MEDS: ZINC SULFATE 220mg CAP or TAB PO SCH (08:07)
[2020-10-14] MEDS: CHOLECALCIFEROL (VITD3) 2,000 UNIT CAP/TAB PO SCH (08:07)
[2020-10-14] MEDS: INSULIN LANTUS (GLARGINE) 1 /0.01ml (100units/ml) SC SCH ×2 (08:07→22:02)
[2020-10-14] MEDS: PROPOFOL 100 ML IV SCH (10:48)
[2020-10-14] MEDS: fentaNYL Drip 2500mCg/250mlNS 250 ML IV SCH ×2 (10:50→23:20)
[2020-10-14] MEDS: PHENYLEPHRINE INJ 80 MG in SODIUM CHL 0.9% 242 ML IV SCH (10:51)
[2020-10-14 12:30] LABS: Hematocrit 27.2 % (41.0-53.0)
[2020-10-14 12:32] LABS: Mean Corpuscular Hemoglobin 30.3 pg (28.0-32.0); Mean Corpuscular Hgb Conc. 32.9 g/dL (32.0-36.0); Mean Corpuscular Volume 91.9 fL (80.0-100.0); Platelet Count (auto) 61 10^3/uL (140-450); Red Blood Cells 2.96 10^6/uL (4.5-5.90); Red Cell Distribution Width 15.6 % (11.8-14.3)
[2020-10-14 12:47] LABS: Basophils % (manual) 0 (0.0-2.0); Blast Cells 0; Eosinophils % (manual) 0 (0-7); Myelocytes % 0; Promyelocytes % 0; Reactive Lymphocytes 0; White Blood Cell 40.6 10^3/uL (4.4-10.8)
[2020-10-14 14:48] LABS: Metamyelocytes % 2; Monocytes % (manual) 3 (0-12)
[2020-10-14 14:50] LABS: Band Neutrophils % (manual) 10; Lymphocytes % (manual) 2 (10.0-50.0)
[2020-10-15] VITALS (47 sets, daily range): BP systolic 0–120; BP diastolic 0–76
[2020-10-15] MEDS: ACCU-CHEK COMFORT CURVE STRIP VI SCH ×3 (00:40→11:54)
[2020-10-15] MEDS: InsuLIN REG 1unit/0.01ml Soln (100units/ml) SC SCH ×3 (00:41→11:53)
[2020-10-15] MEDS: MEROPENEM 1GM IVPB 100 ML IV SCH ×2 (01:21→08:13)
[2020-10-15] MEDS: PROPOFOL 100 ML IV SCH (01:27)
[2020-10-15] MEDS: FREE WATER GT SCH ×4 (02:26→12:41)
[2020-10-15] MEDS: LINEZOLID 600MG/300ML 300 ML IV SCH (02:27)
[2020-10-15] MEDS ORDERED: PHENYLEPHRINE HCL 10 MG/ML VL ONE (03:22)
[2020-10-15] MEDS ORDERED: PHENYLEPHRINE IV 250 ML IV ONE (03:22)
[2020-10-15] MEDS: PHENYLEPHRINE INJ 80 MG in SODIUM CHL 0.9% 242 ML IV SCH (04:11)
[2020-10-15] MEDS: SODIUM ZIRCONIUM CYCL 10 GM PAK PO SCH ×2 (06:00→14:00)
[2020-10-15] MEDS: DexAMETHasone SOD PHOS 10MG/1ML VIAL INJ IV SCH (08:12)
[2020-10-15] MEDS: ASCORBIC ACID 1,000 MG TAB PO SCH (08:13)
[2020-10-15] MEDS: ZINC SULFATE 220mg CAP or TAB PO SCH (08:13)
[2020-10-15] MEDS: CHOLECALCIFEROL (VITD3) 2,000 UNIT CAP/TAB PO SCH (08:14)
[2020-10-15] MEDS: PANTOPRAZOLE 40 MG/10 ML VIAL INJ IV SCH (08:14)
[2020-10-15] MEDS: SODIUM CHLOR 0.9% PF (SALINE LOCK) 10ML VIAL/SYR IV SCH (08:14)
[2020-10-15] MEDS: INSULIN LANTUS (GLARGINE) 1 /0.01ml (100units/ml) SC SCH (10:00)
[2020-10-15] MEDS ORDERED: VASOPRESSIN 50 UNITS in D5W 5% 247.5 ML IV SCH (11:30)
[2020-10-15] MEDS: NOREPINEPHRINE BITARTRATE 32 MG in SODIUM CHL 0.9% 218 ML IV SCH (12:00)
[2020-10-15] MEDS: fentaNYL Drip 2500mCg/250mlNS 250 ML IV SCH (12:52)
[2020-10-15] MEDS: MIDAZOLAM DRIP 50 mg/50mL 50 ML IV SCH (12:53)
[2020-10-15] MEDS ORDERED: MICAFUNGIN SODIUM 100 MG in SODIUM CHL 0.9% 100 ML IV ONE (14:00)
[2020-10-15] MEDS ORDERED: D5W/SOD CHL 0.45% 1,000 ML IV SCH ×2 (14:15→14:30)
[2020-10-15] MEDS ORDERED: LINEZOLID 600MG/300ML 300 ML IV SCH (15:00)
[2020-10-15] MEDS: ERGOCALCIFEROL 50,000 UNIT(1.25MG) CAP PO SCH (15:07)
[2020-10-15] MEDS ORDERED: LORazepam 2MG/ML-1ML VIAL IV PRN ×2 (16:45→17:00)
[2020-10-15] MEDS ORDERED: MORPHINE SULFATE 4 MG/ML SYR/VIAL IV PRN (16:45)
[2020-10-15] MEDS ORDERED: LORazepam 2MG/ML-1ML VIAL ONE (16:48)
[2020-10-15] MEDS ORDERED: MORPHINE SULFATE 4 MG/ML SYR/VIAL ONE (16:49)
[2020-10-15] MEDS ORDERED: SODIUM CHLORIDE 0.9% 500 ML IV ONE (17:15)
[2020-10-16] MEDS ORDERED: MICAFUNGIN SODIUM 100 MG in SODIUM CHL 0.9% 100 ML IV SCH (09:00)
== END 2020-10-15 20:30 | DRG 720 ==
LOC: ER 10:08 → EDBD 10:08 → OVERFLOW 18:57 → TELE-WESTW 23:17 → UNDODISIN 09-25 15:55 → ICU WEST 10-08 15:13
PROVIDERS: ADMIT Hospitalist; ATTEND Internal Medicine
PROC: XW033E5 Introduction of Remdesivir Anti-infective into Peripheral Vein, Percutaneous Approach, New Technology Group 5 (ICD-10-PCS; 2020-09-22)
PROC: XW13325 Transfusion of Convalescent Plasma (Nonautologous) into Peripheral Vein, Percutaneous Approach, New Technology Group 5 (ICD-10-PCS; 2020-09-27)
PROC: 02HV33Z Insertion of Infusion Device into Superior Vena Cava, Percutaneous Approach (ICD-10-PCS; principal; 2020-10-08)
PROC: 5A1955Z Respiratory Ventilation, Greater than 96 Consecutive Hours (ICD-10-PCS; 2020-10-08)
PROC: 04HY32Z Insertion of Monitoring Device into Lower Artery, Percutaneous Approach (ICD-10-PCS; 2020-10-08)
PROC: 0BH17EZ Insertion of Endotracheal Airway into Trachea, Via Natural or Artificial Opening (ICD-10-PCS; 2020-10-08)
PROC: 02HV33Z Insertion of Infusion Device into Superior Vena Cava, Percutaneous Approach (ICD-10-PCS; 2020-10-10)
PROC: 30233N1 Transfusion of Nonautologous Red Blood Cells into Peripheral Vein, Percutaneous Approach (ICD-10-PCS; 2020-10-11)
PROC: 0W9930Z Drainage of Right Pleural Cavity with Drainage Device, Percutaneous Approach (ICD-10-PCS; 2020-10-12)
DX: A41.89 Other specified sepsis (principal); U07.1 COVID-19; J96.01 Acute respiratory failure with hypoxia; N17.0 Acute kidney failure with tubular necrosis; J12.82 Pneumonia due to coronavirus disease 2019; J15.6 Pneumonia due to other Gram-negative bacteria; R65.21 Severe sepsis with septic shock; D62 Acute posthemorrhagic anemia; D68.59 Other primary thrombophilia; E87.0 Hyperosmolality and hypernatremia; E87.1 Hypo-osmolality and hyponatremia; J93.9 Pneumothorax, unspecified; D68.9 Coagulation defect, unspecified; D69.59 Other secondary thrombocytopenia; E11.22 Type 2 diabetes mellitus with diabetic chronic kidney disease; E11.65 Type 2 diabetes mellitus with hyperglycemia; E55.9 Vitamin D deficiency, unspecified; E66.01 Morbid (severe) obesity due to excess calories; E78.5 Hyperlipidemia, unspecified; E87.5 Hyperkalemia; E87.6 Hypokalemia; R74.01 Elevation of levels of liver transaminase levels; E88.09 Other disorders of plasma-protein metabolism, not elsewhere classified; I12.9 Hypertensive chronic kidney disease with stage 1 through stage 4 chronic kidney disease, or unspecified chronic kidney disease; N18.9 Chronic kidney disease, unspecified; Z66 Do not resuscitate; Z79.51 Long term (current) use of inhaled steroids; Z83.3 Family history of diabetes mellitus; Z79.84 Long term (current) use of oral hypoglycemic drugs; Z79.899 Other long term (current) drug therapy; Z79.891 Long term (current) use of opiate analgesic; Z79.01 Long term (current) use of anticoagulants; Z68.30 Body mass index [BMI] 30.0-30.9, adult
CPT/HCPCS: 10022; 36415; 36569; 36600; 71045; 71275; 76705; 76775; 76942; 80048; 80053; 80061; 80076; 80158; 80307; 81001; 82306; 82570; 82728; 82805; 82962; 83036; 83605; 83615; 83735; 83880; 84100; 84132; 84156; 84300; 84443; 84484; 85007; 85025; 85027; 85379; 85610; 85730; 86141; 86850; 86900; 86901; 86920; 87040; 87070; 87077; 87081; 87086; 87088; 87186; 87205; 93005; 93306; 93970; 94002; 94003; 94640; 96365; 96375; 97110; 97530; 99291; A4223; C1724; C1729; C9113; G0378; J0610; J0696; J1100; J1815; J2001; J2185; J2248; J2250; J2704; J3430; J3490; J7060; P9047